=== PATIENT | female | born 1935 | race Caucasian/White ===

== ENCOUNTER 2024-01-16 15:07 | Emergency (ER) | payer OTHER, SELFPAY ==
[2024-01-16 15:21] VITALS: BP 181/72; BMI 22.1
[2024-01-16 16:00] VITALS: BP 182/73
[2024-01-16] MEDS: ADACEL 0.5 ML IM (16:17)
[2024-01-16] MEDS: KEFLEX 500 MG PO (16:17)
[2024-01-16 16:22] VITALS: BP 176/74
--- NOTE | 2024-01-16 16:50 | ED.GENMED ---
History of Present Illness
General
Chief Complaint: Fall
Source: patient and family
Exam Limitations: none
Time Seen by Provider: 01/16/24 15:41
Nursing documentation reviewed up to this point in time: agreed with
History of Present Illness
History of Present Illness:
88-year-old female past medical history of hypertension hyperlipidemia, breast cancer presenting to the emergency department today after a trip and fall at home she hit her forehead as well as her left arm. Did not lose consciousness no neck pain
otherwise feels well at this point. She is unsure when her last tetanus shot was.
Past History
Past History
ED Past Medical History: HTN and Hypercholesterolemia
ED Past Surgical History: Negative Cardiac
Social History
Tobacco: Non-smoker
Alcohol: None
Drug: None
Personal:
Living: with family
Employment: Employed
Review of Systems
Review of Systems
Allergies reviewed?: Yes
All Other Systems: ROS reviewed and negative except as documented in HPI and ROS
Phy Exam
Physical Exam
Physical Exam:
GENERAL: Alert , in no apparent distress
EYE: pupils equal and reactive
NECK: Supple, no significant adenopathy.
ENT: o/p clr, mmm.
CARDIAC: Regular rate and rhythm .
LUNGS: Clear breath sounds bilaterally, no acute respiratory distress, no wheezes/rales/rhonchi
ABDOMEN: Soft, without focal tenderness, no r/g, no cvat
NEUROLOGICAL: Alert and oriented, no focal neuro deficits
SKIN: Large area of superficial skin abrasion to the left arm on the lateral aspect spanning roughly 20 cm in total length and roughly 2 to 3 cm in width. No foreign body seen warm and dry, skin intact.
MUSCULOSKELETAL: No edema, well perfused.
PSYCH: Normal and appropriate interaction.
Course
Orders/Labs/Results
Orders:
Orders
01/16/24 15:47
CT Head W/o Iv Contrast Urgent
Comment:
Reason For Exam: fall hit head
01/16/24 16:04
Cephalexin Monohydrate [Keflex] 500 mg PO NOW STA
01/16/24 16:08
Tetanus/Diphth/Acelpertussis [Adacel] 0.5 ml IM .ONCE ONE
Vital Signs
Initial and Last Documented VS:
Initial Vital Signs
Temp Pulse Resp BP Pulse Ox
98.4 F 70 16 181/72 93
01/16/24 15:21 01/16/24 15:21 01/16/24 15:21 01/16/24 15:21 01/16/24 15:21
Last Documented Vital Signs
Temp Pulse Resp BP Pulse Ox
98.4 F 70 16 181/72 94
01/16/24 15:21 01/16/24 15:21 01/16/24 15:21 01/16/24 15:21 01/16/24 15:21
MDM/Problems Addressed
MDM/Problems Addressed:
88-year-old female presenting to the emergency department today after trip and fall hitting her forehead as well as scraping her left arm. No additional injuries neurologically intact no neck pain good range of motion and strength. Skin tear is
very superficial no specific area that required repair was cleaned thoroughly and covered with active bandage she was started on antibiotics considering large area of skin disruption but otherwise stable for discharge return precautions given.
Normal head CT here.
*Critical Care Note
Total Time (30-74mins, 75-104mins- exclusive of procedures): Not Applicable
ED Attending Note
-
Portions of this chart may have been created with voice recognition software.� Occasional wrong word or��sound alike� substitutions may have occurred due to the inherent limitations of voice recognition software.
Discharge Plan
Departure
Patient Disposition: Home (Routine Discharge)
Date of Disposition: 01/16/24
Time of Disposition: 16:53
Patient with high blood pressure during this ER visit?: No
Condition: Good
Covid-19: Not Applicable
Discharge Problem:
Avulsion of skin, Fall
Instructions: Wound Care (DC), Preventing falls in adults
Prescriptions:
New
cephalexin 500 mg capsule
500 mg PO TID 3 Days Qty: 9 0RF
No Action
levothyroxine 25 MCG tablet
25 mcg PO DAILY
metoprolol succinate 25 MG tablet extended release 24 hr
100 mg PO DAILY
potassium chloride 10 MEQ tablet,ER particles/crystals
20 meq PO DAILY
valsartan 80 MG tablet
320 mg PO DAILY 30 Days Qty: 30 0RF
hydralazine 10 MG tablet
5 mg PO TID Qty: 30 0RF
lovastatin 40 mg Tablet
40 mg PO DAILY
Referrals:
Monty Kowalski MD [Family Provider] -
Activity Restrictions/Additional Instructions:
You came to the emergency department today after a fall. You are found have a large skin avulsion to the left arm please keep the area clean covered and take Keflex 3 times daily for the next 3 days to reduce risk of infection. Additionally had a
head CT without signs of emergent injury. Please rest over the next few days. Return to the emergency department for any worsening, new or concerning symptoms.
Interventions
Interventions:
*Risk Screen - Suicide Last Done: 01/16/24 15:21
*General Assessment Last Done: 01/16/24 15:21
*Neglect/Abuse Screening Last Done: 01/16/24 15:21
ED- Fall Risk Assessment Last Done: 01/16/24 15:21
*ED COVID-19 Vaccine History Last Done: 01/16/24 15:21
ED-Musculoskeletal Assessment Last Done: 01/16/24 15:21
ED- Neurological Assessment Last Done: 01/16/24 15:21
ED-Skin Assessment Last Done: 01/16/24 15:21
Discharge Date and Time
Print Language: TAMAZIGHT
== END 2024-01-16 17:49 | disposition home or self-care (01) ==
LOC: EMR 15:07
PROVIDERS: EMERGENCY PHYSICIAN Emergency Medicine; FAMILY PHYSICIAN Internal Medicine
DX: S41.102A Unspecified open wound of left upper arm, initial encounter (principal); W01.0XXA Fall on same level from slipping, tripping and stumbling without subsequent striking against object, initial encounter; Z23 Encounter for immunization; I10 Essential (primary) hypertension; E78.00 Pure hypercholesterolemia, unspecified
CPT/HCPCS: 99284; 90471; 70450; 90715

== ENCOUNTER 2024-11-30 11:57 | Inpatient (IN) | payer OTHER, SELFPAY ==
[2024-11-29 12:16] VITALS: BP 154/87
[2024-11-29 12:42] LABS: Hematocrit 38.6 % (37.0-47.0); Hemoglobin 13.3 g/dL (12.0-16.0); Mean Corp Hgb Conc. 34.5 g/dL (33.0-37.0); Mean Corpuscular Volume 83.5 fL (81.0-99.0); Nucleated Red Blood Cells % 0 %; Platelet Count 191 10^3/uL (130-400); Red Cell Dist. Width 14.4 % (11.5-14.5)
[2024-11-29 13:01] LABS: ALT (SGPT) 15 U/L (0-35); AST (SGOT) 24 U/L (14-36); Albumin 3.4 g/dl (3.5-5.0); Alkaline Phosphatase 78 U/L (38-126); Blood Urea Nitrogen 14 mg/dl (7-17); Calcium 8.3 mg/dl (8.4-10.2); Carbon Dioxide 25 mmol/L (22-30); Glucose 169 mg/dl (70-99); Total Protein 6.0 g/dl (6.3-8.2); eGFR > 60.00
[2024-11-29 13:10] LABS: Chloride 99 mmol/L (98-107); Sodium 130 mmol/L (135-145)
--- NOTE | 2024-11-29 14:13 | ED.GENMED ---
History of Present Illness
General
Chief Complaint: Bowel Problem
Source: patient and family
Exam Limitations: none
Time Seen by Provider: 11/29/24 13:56
History of Present Illness
History of Present Illness:
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 Patient had her first
Keytruda treatment on 11/12/24. She started to feel unwell about a week later. She reports generalized weakness and fatigue with decreased PO intake. She is also having intermittent diarrhea for the past few days. She had 1 explosive bowel
movement so far today. Daughter tried to call her oncologist but she decided to bring her to the ED for concern for dehydration. Patient denies any fevers, chills, vomiting, dysuria, abdominal pain, chest pain, shortness of breath. She is
scheduled for her next Keytruda in 3 days.
Past History
Past History
ED Past Medical History: HTN and Hypercholesterolemia
ED Past Surgical History: Negative Cardiac
Social History
Tobacco: Non-smoker
Alcohol: None
Drug: None
Personal:
Living: with family
Employment: Employed
Phy Exam
Physical Exam
Physical Exam:
Appears fatigued, non-toxic
General Physical Exam
General Presentation: no apparent distress
General Skin: warm and dry
General Habitus: normal and elderly
General Mental: alert
ENT Exam
ENT Exam: normocephalic
Cardiovascular Exam
Cardiovascular Exam: regular rate/rhythm
Pulmonary Exam
Pulmonary Exam: lungs clear, no respiratory distress, no rales, no crackles, no rhonchi and no wheezing
Gastrointestinal Exam
Gastrointestinal Exam: non tender, soft and non distended
Neurological Exam
Neurological Exam: alert
[place] Coma Scale
Eye Opening: Spontaneous
Verbal Response: Oriented
Motor Response: Obeys Commands
GCS Total Score: 15
Skin Exam
Skin Exam: normal color and warm/dry
Psychiatric Exam
Psychiatric Exam: normal mood/affect
Course
Orders/Labs/Results
Orders:
Orders
11/29/24 Breakfast
Full Liquids
At Your Request: Limited Participation
11/29/24 12:33
Complete Blood Count/With Diff Urgent
Comprehensive Metabolic Panel Urgent
Magnesium Urgent
Comment: MAG ADDED ON BY FLOOR 2:11PM 11-29-24
11/29/24 14:11
Add On- LAB Urgent
Tests Added?: magnesium
0.9% Sodium Chloride 500 ml [Nss] 500 ml IV BOLUS
11/29/24 14:12
Electrocardiogram (*1) Urgent
Reason for Study: Fatigue / Weakness
EKG- Treatment ONCE
11/29/24 14:29
Potassium Chloride [KCl] 40 meq PO NOW STA
11/29/24 17:11
Admit/Transfer Patient As Directed
Co-Sign Provider:
Level of Care: Observation services
Assign to:: Medical/Surgical
Physician / Group: los
Diagnosis: dehydration
PRN Pain Medication Management As Directed
May give lesser potent ordered pain med per pt: Yes
preference::
Protocol:: Medication orders for pain may be administered in a
manner that supports deferring to patient preference
when the pt is:
- Requesting an ordered lesser potent pain medication.
Least to most potent pain medications are defined
as: acetaminophen < NSAID < tramadol < opioids
(morphine, oxycodone, hydromorphone).
- Requesting a lesser dose of the same medication IF
ORDERED.
- Requesting a less intrusive route of administration
if both routes are prescribed by the provider (PO <
IV).
11/29/24 17:12
Code Status As Directed
Resuscitation Status: Do not resuscitate
Reached after discussion with pt or family/Healthcare POA: Yes
DNR Bracelet Application ONCE
11/29/24 17:28
Metoprolol Xl [Toprol Xl] 100 mg PO NOW STA
Valsartan [Diovan] 320 mg PO NOW STA
11/29/24 18:06
0.9% Sodium Chloride 1000 ml [Nss] 1,000 ml IV 80 mls/hr
Acetaminophen [Tylenol] 650 mg PO Q4HPRN PRN
Enoxaparin Sodium [Lovenox] 40 mg SC QPM
11/29/24 18:06
Activity As Directed
Activity Level: As Tolerated
Vital Signs As Directed
Frequency: Per unit guidelines
Pt Eval And Treat Routine
Activity Level: As Tolerated
DX Deep Vein Thrombosis Video Routine
11/29/24 18:15
Pancrelipase [Zenpep Delayed Release Capsule] 1 capsule PO HSPRN PRN
11/29/24 18:30
Pancrelipase [Zenpep Delayed Release Capsule] 2 capsule PO MEALS
11/29/24 19:54
Norovirus by PCR Routine
[facility] Source: Feces/Stool
Specimen Description:
Date Specimen was Collected: 11/29/24
Time Specimen was Collected: 19:40
STOOL [C difficile Antigen & Toxins] Routine
[facility] Source: Feces/Stool
Specimen Description:
Date Specimen was Collected: 11/29/24
Time Specimen was Collected: 19:40
Stool Culture Routine
[facility] Source: Feces/Stool
Specimen Description:
Date Specimen was Collected: 11/29/24
Time Specimen was Collected: 19:40
Stool For WBC Routine
[facility] Source: Feces/Stool
Specimen Description:
Date Specimen was Collected: 11/29/24
Time Specimen was Collected: 19:40
11/29/24 22:00
Atorvastatin [Lipitor] 10 mg PO HS
HydrALAZINE [Apresoline] 50 mg PO TID
11/30/24 06:00
Basic Metabolic Panel IN AM
Complete Blood Count/No Diff IN AM
Levothyroxine [Synthroid] 25 mcg PO DAILY@0600
Occupational Therapy Consult [Ot Eval And Treat] IN AM
11/30/24 08:00
Metoprolol Xl [Toprol Xl] 100 mg PO DAILY
Valsartan [Diovan] 320 mg PO DAILY
Abnormal Lab Results
11/29/24
12:33
WBC 12.2 H 10^3/uL
(4.8-10.8)
MPV 10.8 H fL
(7.4-10.4)
Abs Immat Gran (auto) 0.1 H 10^3/uL
(0-0.05)
Absolute Neuts (auto) 10.5 H 10^3/uL
(1.4-6.5)
Absolute Lymphs (auto) 0.8 L 10^3/uL
(1.2-3.4)
Absolute Monos (auto) 0.8 H 10^3/uL
(0.1-0.6)
Immature Gran % 0.7 H %
(0-0.5)
Neutrophils % 86.0 H %
(42.2-75.2)
Lymphocytes % 6.3 L %
(20.5-51.1)
Sodium 130 L mmol/L
(135-145)
Potassium 3.3 L mmol/L
(3.5-5.1)
Glucose 169 H mg/dl
(70-99)
Calcium 8.3 L mg/dl
(8.4-10.2)
Total Protein 6.0 L g/dl
(6.3-8.2)
Albumin 3.4 L g/dl
(3.5-5.0)
11/29/24 12:33
11/29/24 12:33
Vital Signs
Initial and Last Documented VS:
Initial Vital Signs
Temp Pulse Resp BP Pulse Ox
98.3 F 80 16 154/87 94
11/29/24 12:16 11/29/24 12:16 11/29/24 12:16 11/29/24 12:16 11/29/24 12:16
Last Documented Vital Signs
Temp Pulse Resp BP Pulse Ox
98 F 92 20 142/68 92
11/29/24 18:24 11/29/24 18:24 11/29/24 18:24 11/29/24 18:24 11/29/24 18:24
MDM/Problems Addressed
Differential Diagnosis Includes:
89yoF here with generalized weakness, fatigue, and diarrhea. Recently started on Keytruda for melanoma. VSS. She appears fatigued on exam but is nontoxic. Abdominal exam is benign. Differential diagnosis includes but is not limited to:
Dehydration, viral gastroenteritis, medication side effect, failure to thrive
Initial ED plan: Check CBC, CMP, and EKG. IV fluid bolus. Defer abdominal imaging given benign exam.
*Pulse Oximetry
SaO2: 94
Oxygen Mode of Delivery: Room air
Patient hypoxic: no (94%)
*EKG
Interpreted by ED Provider?: Yes
EKG Intrepretation Date: 11/29/24
Heart Rate: 79
Rate: normal
Rhythm: sinus
[place]: left axis deviation
Interval: normal interval
QRS Pattern: normal QRS
Ischemia: no ischemia
*Critical Care Note
Total Time (30-74mins, 75-104mins- exclusive of procedures): Not Applicable
Update Note
Update Note:
Labs show a sodium of 130 and a potassium of 3.3. Renal function preserved. Patient feels too weak to go home so will admit for further management.
ED Attending Note
-
Portions of this chart may have been created with voice recognition software.� Occasional wrong word or��sound alike� substitutions may have occurred due to the inherent limitations of voice recognition software.
Discharge Plan
Departure
Patient Disposition: Admit
Date of Disposition: 11/29/24
Time of Disposition: 16:46
Presentation/result/management discussed w/ accepting MD/DO: Hospitalist
Discharge Problem:
Generalized weakness, Diarrhea
Interventions
Interventions:
*Risk Screen - Suicide Last Done: 11/29/24 12:20
*General Assessment Last Done: 11/29/24 14:39
*Neglect/Abuse Screening Last Done: 11/29/24 12:20
*ED- Fall Risk Assessment Last Done: 11/29/24 14:39
*Nursing Disposition Last Done: 11/29/24 18:05
ED-Mgicqz-Qfewovtvqs Assessment Last Done: 11/29/24 14:37
Discharge Date and Time
Discharge Date/Time: 11/29/24 18:05
[2024-11-29 14:20] LABS: Potassium 3.3 mmol/L (3.5-5.1)
[2024-11-29] MEDS: NSS 500 IV (14:23)
[2024-11-29 14:36] LABS: Magnesium 1.6 mg/dl (1.6-2.3)
[2024-11-29] MEDS: KCL 40 MEQ PO (15:05)
[2024-11-29 16:00] VITALS: BP 189/78
--- NOTE | 2024-11-29 16:49 | HPS.HSE ---
Family Physician
-
Family Physician: YSABEL De La Cruz
Chief Complaint
-
generalized weakness
diarrha
History of Present Illness
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 Patient had her first
Keytruda treatment on 11/12/24. She started to feel unwell about a week later. She reports generalized weakness and fatigue with decreased PO intake. She is also having intermittent diarrhea since Friday. She had 1 explosive bowel movement so far
today. Patient denies any fevers, chills, vomiting, dysuria, abdominal pain, chest pain, shortness of breath. Patient any headache, dizziness or syncope.
Patient received normal saline, potassium chloride in ER. Admitting for further management
Medical History
Past Medical History
Past Medical History: Reports Other
Additional Past Medical History:
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
Squamous cell carcinoma
Hyperlipidemia
Pancreatic cyst
Breast cancer
Osteoarthritis
Hypothyroidism
Hypertension
Thyroid nodule
Pancreatic adenocarcinoma
Past Surgical History: Reports Other
Additional Past Surgical History:
Report procedure
Mohs surgery
Social History
Tobacco: Non-smoker
Alcohol: None
Drug: None
Living: Alone
Family History
Family History: Not pertinent
Allergies / Home Medications
Allergies reflects when Allergies were last updated in [employer].
Home Medications with original date entered in [employer]
Allergy/Medication List:
Allergies
Allergy/AdvReac Type Severity Reaction Status Date / Time
amlodipine Allergy Unknown Verified 11/15/22 14:38
Home Medications
levothyroxine 25 mcg tablet 25 mcg PO DAILY Thyroid 09/17/21
metoprolol succinate 25 mg tablet,extended release 24 hr 100 mg PO DAILY Blood pressure 09/17/21
potassium chloride 10 mEq tablet,extended release(part/cryst) 20 meq PO DAILY Electrolyte Repletion 09/17/21
valsartan 80 mg tablet 320 mg (4 x 80 mg) PO DAILY 30 days #30 tabs 09/22/21
hydralazine 10 mg tablet 5 mg (1/2 x 10 mg) PO TID #30 tabs 11/01/21
lovastatin 40 mg tablet 40 mg PO DAILY 11/15/22
cephalexin 500 mg capsule 500 mg PO TID 3 days #9 caps 01/16/24
Review of Systems
-
Constitutional: Reports Fatigue
EENT: Reports No Symptoms
Respiratory: Reports No Symptoms
Cardiac: Reports No Symptoms
Abdomen/GI: Reports Diarrhea
: Reports No Symptoms
Musculoskeletal: Reports No Symptoms
Skin: Reports No Symptoms
Neurological: Reports No Symptoms
Endocrine: Reports No Symptoms
Hematologic/Lymphatic: Reports No Symptoms
Psych: Reports No Symptoms
Physical Exam
Vital Signs
Vital Signs
Temp Pulse Resp BP Pulse Ox
98.3 F 88 18 189/78 98
11/29/24 12:16 11/29/24 16:00 11/29/24 16:00 11/29/24 16:00 11/29/24 16:00
Physical Exam
General: Well Developed, Well Nourished and No Apparent Distress
HEENT: NormoCephalic, Moist mucous membranes and Atraumatic
Respiratory: Clear
Cardiac: S1/S2 and Regular Rhythm; No Murmur or Rub
GI: Soft, Non Tender, Non Distended and Normal Bowel Sounds; No Organomegaly
Rectal: Deferred by Provider
Musculoskeletal: No Clubbing, No Cyanosis and No Edema
Skin: No Rash
Neuro: AO x 3 and Nonfocal/grossly intact
Psych: Calm
Laboratory Results
-
11/29/24 12:33
11/29/24 12:33
Laboratory Results
Total Bilirubin 1.1 mg/dl (0.2-1.3) 11/29/24 12:33
AST 24 U/L (14-36) 11/29/24 12:33
ALT 15 U/L (0-35) 11/29/24 12:33
Alkaline Phosphatase 78 U/L (38-126) 11/29/24 12:33
Data Reviewed
-
Lab Data: Labs Reviewed by me
Impression/Plan
-
#weakness/fatigue/diarrhea likely secondary to Keytruda vs viral
- PT/OT consulted
- Stool culture and norovirus
-stool for c diff
-fluids continued for hydration
#hyponatremia hypovolemic
#hypokalemia likely from diarrhea
-na 130, k 3.3
- Normal saline continued
- BMP in a.m.
# Leukocytosis likely reactive
- WBCs 12 point
- Patient is afebrile
- Continue to monitor
# History of pancreatic adenocarcinoma
- Status post Whipple surgery
# Right chest wall melanoma
- Status post resection
- Now on Keytruda first dose was on 11/12 next due in 3 days
# Essential hypertension
# Hyperlipidemia
# DVT prophylaxis
- Lovenox subcu
# CODE STATUS
- patient is DNR
-
--- NOTE | 2024-11-29 17:31 | W.PN.UPDATE ---
Update Note
Progress Note Update
This is an addendum to the H&P written by Liane Fish on 11/29/2024. Patient seen and examined independently with TABLE G[employer] DUAL RATE SUPERVISOR.
89-year-old female past medical history of pancreatic carcinoma status post Whipple, hypertension, hyperlipidemia, melanoma recently started Keytruda on 11/12, hypothyroidism, here with generalized weakness, extreme fatigue and diarrhea. No vomiting
or fever.
Labs show hyponatremia, hypokalemia. Leukocytosis.
Patient with acute diarrhea likely gastroenteritis possibly viral versus related to Keytruda. Check stool studies. Full liquid diet. Advance as tolerated. Continue IV fluids. Replete potassium.
[2024-11-29] MEDS: DIOVAN 320 MG PO (17:50)
[2024-11-29] MEDS: TOPROL XL 100 MG PO (17:51)
[2024-11-29] MEDS: NSS 1000 IV (18:23)
[2024-11-29 18:24] VITALS: BP 142/68
[2024-11-29 18:25] VITALS: BMI 21.7
--- NOTE | 2024-11-29 18:57 | PTCARENOTE ---
Patient received from ED via stretcher; AAOx3; pt ambulated in room with walker; she had 1 incontinence episode of stool; VSS; daughter at bedside; call chandler within reach.
[2024-11-29] MEDS: LOVENOX 40 MG SC (20:15)
[2024-11-29] MEDS: ZENPEP DELAYED RELEASE CAPSULE 2 CAPSULE PO (20:15)
[2024-11-29] MEDS: APRESOLINE 50 MG PO (21:59)
[2024-11-29] MEDS: LIPITOR 10 MG PO (22:00)
[2024-11-29 23:12] VITALS: BP 132/57
[2024-11-30] MEDS: SYNTHROID 25 MCG PO (06:01)
[2024-11-30] MEDS: NSS 1000 IV ×2 (06:01→18:33)
[2024-11-30 07:00] VITALS: BP 131/56
[2024-11-30 08:07] LABS: Hematocrit 32.9 % (37.0-47.0); Hemoglobin 11.3 g/dL (12.0-16.0); Mean Corp Hgb Conc. 34.3 g/dL (33.0-37.0); Mean Corpuscular Volume 83.7 fL (81.0-99.0); Platelet Count 148 10^3/uL (130-400); Red Cell Dist. Width 14.3 % (11.5-14.5)
[2024-11-30] MEDS: TOPROL XL 100 MG PO (08:26)
[2024-11-30] MEDS: ZENPEP DELAYED RELEASE CAPSULE 2 CAPSULE PO ×3 (08:28→17:31)
[2024-11-30] MEDS: APRESOLINE 50 MG PO ×3 (08:28→21:56)
[2024-11-30] MEDS: DIOVAN 320 MG PO (08:29)
[2024-11-30 08:34] LABS: Blood Urea Nitrogen 11 mg/dl (7-17); Calcium 7.5 mg/dl (8.4-10.2); Carbon Dioxide 22 mmol/L (22-30); Chloride 105 mmol/L (98-107); Estimated Creatinine Clearance 47 ml/min; Glucose 137 mg/dl (70-99); Potassium 3.3 mmol/L (3.5-5.1); Sodium 132 mmol/L (135-145); eGFR > 60.00
[2024-11-30] MEDS: KCL 40 MEQ PO (09:57)
--- NOTE | 2024-11-30 10:48 | W.PN.HOSP.TC ---
Today's Communication/Plan
-
Potassium Replete
Await further stool studies
Continue IV fluids
PT eval
Assessment / Plan
Assessment / Plan
#Diarrhea likely secondary to Keytruda vs viral
#Fatigue and weakness likely secondary dehydration secondary to above
C. difficile negative. Awaiting norovirus. Awaiting further stool studies
If patient with severe abdominal pain or cramping then check CT abdomen pelvis
Advance diet and monitor for tolerance. If it nausea vomiting can de-escalate diet
IV fluids for additional 24 hours
#hyponatremia hypovolemic
#hypokalemia likely from diarrhea
Replete potassium
Continue IV fluid
Sodium is improving
# Leukocytosis likely reactive
Resolved
Patient is afebrile
Continue to monitor
# History of pancreatic adenocarcinoma
Status post Whipple surgery
# Right chest wall melanoma
Status post resection
Now on Keytruda first dose was on 11/12 next due in 3 days
# Essential hypertension
Continue with hydralazine and Diovan and metoprolol with hold parameters
# Hyperlipidemia
Continue with statin
# DVT prophylaxis- Lovenox subcu
# CODE STATUS
- patient is DNR
PT eval
Anticipated Discharge: > 48 hours
Subjective/Interval History
-
Date of Service: November 30, 2024
Remains with diarrhea
Denies any nausea or vomiting
Objective Data
-
Labs:
Laboratory Results
11/30/24
07:09
WBC 10.0
Hgb 11.3 L
Hct 32.9 L
Plt Count 148 D
Sodium 132 L
Potassium 3.3 L
Chloride 105
Carbon Dioxide 22
BUN 11
Creatinine 0.4 L
Glucose 137 H
Calcium 7.5 L
Vital Signs:
Vital Signs
Temp Pulse Resp BP Pulse Ox
98.2 F 73 16 131/56 91
11/30/24 07:00 11/30/24 08:26 11/30/24 07:00 11/30/24 08:26 11/30/24 10:06
I&O
11/29/24 11/30/24 12/01/24
06:59 06:59 06:59
Intake Total 960 / 960
Balance 960 / 960
Physical Exam
-
General: No Apparent Distress, Comfortable and Conversant; Negative Slurred Speech
HEENT: Normocephalic, Atraumatic and Moist Mucous Membranes
Respiratory: Non Labored Respirations
Cardiac: Negative Murmur, Rub or Gallop
GI: Soft, Nontender, Nondistended and Normal Bowel Sounds; Negative Organomegaly
Rectal: Deferred by Provider
Musculoskeletal: No Clubbing, No Cyanosis and No Edema
Skin: Negative Rash
Neuro: Awake, Alert, Oriented, No Motor Deficits and Nonfocal/Grossly Intact; Negative Slurred Speech or Facial Droop
Psych: Calm
Data Reviewed
-
Total Time Spent with Patient (in minutes): 55
[2024-11-30] MEDS: IMODIUM 4 MG PO (12:01)
[2024-11-30 12:06] VITALS: BP 130/59; PULSE 67; O2SAT 93
--- NOTE | 2024-11-30 14:00 | CHAP ---
Msgr. Jonas Gutierrez of [facility] in [place] gave Amber the Sacrament of the Sick, Holy Communion and an Apostolic Pardon. Exact time uncertain.
[2024-11-30 15:00] VITALS: BP 146/66
[2024-11-30] MEDS: LOVENOX 40 MG SC (17:31)
[2024-11-30] MEDS: LIPITOR 10 MG PO (21:57)
[2024-11-30 23:20] VITALS: BP 146/65
[2024-12-01] MEDS: SYNTHROID 25 MCG PO (06:11)
[2024-12-01] MEDS: NSS 1000 IV (06:28)
[2024-12-01 07:20] VITALS: BP 129/49
[2024-12-01] MEDS: APRESOLINE 50 MG PO ×3 (08:21→21:47)
[2024-12-01] MEDS: DIOVAN 320 MG PO (08:22)
[2024-12-01] MEDS: ZENPEP DELAYED RELEASE CAPSULE 2 CAPSULE PO ×3 (08:22→17:23)
[2024-12-01] MEDS: TOPROL XL 100 MG PO (08:22)
[2024-12-01 09:29] LABS: Hematocrit 35.2 % (37.0-47.0); Hemoglobin 11.7 g/dL (12.0-16.0); Mean Corp Hgb Conc. 33.2 g/dL (33.0-37.0); Mean Corpuscular Volume 85.2 fL (81.0-99.0); Nucleated Red Blood Cells % 0 %; Platelet Count 198 10^3/uL (130-400); Red Cell Dist. Width 14.6 % (11.5-14.5)
[2024-12-01 09:54] LABS: Blood Urea Nitrogen 10 mg/dl (7-17); Calcium 7.8 mg/dl (8.4-10.2); Carbon Dioxide 20 mmol/L (22-30); Chloride 106 mmol/L (98-107); Estimated Creatinine Clearance 47 ml/min; Glucose 123 mg/dl (70-99); Potassium 3.9 mmol/L (3.5-5.1); Sodium 130 mmol/L (135-145); eGFR > 60.00
--- NOTE | 2024-12-01 10:15 | W.PN.HOSP.TC ---
Today's Communication/Plan
-
Monitor for diet tolerance
DC fluids
Monitor stool output
Assessment / Plan
Assessment / Plan
#Diarrhea likely secondary to Keytruda vs viral
#Fatigue and weakness likely secondary dehydration secondary to above
C. difficile negative. Norovirus negative. No WBC seen in the stool.
Denies any abdominal pain or cramping.
DC fluids. Monitor for diet tolerance.
# Chronic hyponatremia
#hypokalemia likely from diarrhea
Potassium stabilized.
# Leukocytosis likely reactive
Resolved
Patient is afebrile
Continue to monitor
# History of pancreatic adenocarcinoma
Status post Whipple surgery
# Right chest wall melanoma
Status post resection
Now on Keytruda first dose was on 11/12 next due in 3 days
# Essential hypertension
Continue with hydralazine and Diovan and metoprolol with hold parameters
# Hyperlipidemia
Continue with statin
# DVT prophylaxis- Lovenox subcu
# CODE STATUS
- patient is DNR
PT eval Home on discharge
Anticipated Discharge: Within 24 hours
Subjective/Interval History
-
Date of Service: December 01, 2024
Denies any abdominal pain, cramping, nausea, vomiting
States no bowel movement since last night
Objective Data
-
Labs:
Laboratory Results
12/01/24
09:09
WBC 9.9
Hgb 11.7 L
Hct 35.2 L
Plt Count 198 D
Sodium 130 L
Potassium 3.9
Chloride 106
Carbon Dioxide 20 L
BUN 10
Creatinine 0.4 L
Glucose 123 H
Calcium 7.8 L
Vital Signs:
Vital Signs
Temp Pulse Resp BP Pulse Ox
98.6 F 76 16 129/49 94
07/02/25 07:20 12/01/24 08:21 12/01/24 07:20 12/01/24 08:21 12/01/24 07:20
I&O
11/30/24 12/01/24 12/02/24
06:59 06:59 06:59
Intake Total 960 / 960 3190 / 3190
Balance 960 / 960 3190 / 3190
Physical Exam
-
General: No Apparent Distress, Comfortable and Conversant; Negative Slurred Speech
HEENT: Normocephalic, Atraumatic and Moist Mucous Membranes
Respiratory: Non Labored Respirations
Cardiac: Negative Murmur, Rub or Gallop
GI: Soft, Nontender, Nondistended and Normal Bowel Sounds; Negative Organomegaly
Rectal: Deferred by Provider
Musculoskeletal: No Clubbing, No Cyanosis and No Edema
Skin: Negative Rash
Neuro: Awake, Alert, Oriented, No Motor Deficits and Nonfocal/Grossly Intact; Negative Slurred Speech or Facial Droop
Psych: Calm
--- NOTE | 2024-12-01 13:03 | CM ---
Initial assessment completed with patient who lives with her in a 2 story home with B/B on 2nd and 1/2 bath on 1st, 1 step to enter. 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
. Also has 3 daughters and 1 son that are very supportive and helpful. Patient does not use any DME but there is a hospital bed, RW and SPC in the home. Patient does not receive any in-home services. Does have a HC-POA. No
service. [employer] is Adam Garcia with [facility]. Pharmacy is [facility] in [place]. Discharge POC: [facility] for RN, PT/OT. Referral forwarded.
--- NOTE | 2024-12-01 14:13 | PN.CDI ---
CDI
- -
CDI:
Physician Documentation Request
Admit Date: 11/30/24 11:57
Dear Doctor Stephanie,
Please review the following and provide your response in the progress notes.
Clinical Indicators:
Pt admitted with Diarrhea likely from Keytruda vs viral
Documented per Nursing [facility] note 11/29, ' Present on admission Buttock pressure injury stage 1 ..silicone border foam..'
Physician documentation of the type and location of wounds is required for compliant documentation. Based on the above clinical findings and your assessment, please provide the following in your progress note:
1. Location of the ulcer/wound, including laterality.
2. Type (etiology) of ulcer/wound:
- Pressure (decubitus) ulcer
- Non-pressure ulcer
- Other ( please specify)
Use of terms such as suspected, likely, concern for, or probable (associated with a specific diagnosis that is being evaluated, monitored, or treated as if it exists) are acceptable and can be coded in the inpatient setting, when documented at the
time of discharge.
Thank you,
Malorie Coto RN
CDI Specialist
Brant Text
Please use your independent medical judgment in providing your response.
*Source: National Pressure Ulcer Advisory Panel (NPUAP)
[2024-12-01 15:46] VITALS: BP 142/59
[2024-12-01 16:02] VITALS: BP 142/59; PULSE 65; O2SAT 93
[2024-12-01] MEDS: LOVENOX 40 MG SC (17:23)
[2024-12-01 21:45] VITALS: BP 131/57
[2024-12-01] MEDS: LIPITOR 10 MG PO (21:47)
--- NOTE | 2024-12-02 03:35 | PTCARENOTE ---
Patient c/o 'feeling like she cannot urinate.' Patient bladder scanned, at 0330, after sitting on the commode and was found to have 200 mls of urine in her bladder. Lima-pad was saturated; removed and changed. Patient resting comfortably at this
time; plan of care ongoing.
[2024-12-02] MEDS: SYNTHROID 25 MCG PO (05:42)
[2024-12-02 07:00] VITALS: BP 126/59
[2024-12-02] MEDS: DIOVAN 320 MG PO (07:58)
[2024-12-02] MEDS: APRESOLINE 50 MG PO ×3 (07:58→21:16)
[2024-12-02] MEDS: TOPROL XL 100 MG PO (07:59)
[2024-12-02] MEDS: ZENPEP DELAYED RELEASE CAPSULE 2 CAPSULE PO ×3 (08:07→18:01)
[2024-12-02] MEDS: LR 1000 IV ×2 (11:24→23:06)
[2024-12-02] MEDS: COLACE 100 MG PO ×2 (11:28→19:49)
--- NOTE | 2024-12-02 13:13 | W.PN.HOSP.TC ---
Addendum entered and electronically signed by Heron Brown MD 12/02/24 18:15:
CT scan finding showing emphysematous cystitis. WBC normal. Urology consulted Dr. Victor. Recs for German catheter placement. Will obtain UA sample and start broad spectrum antibiotics.
Original Note:
Today's Communication/Plan
-
Check CT abdomen pelvis
Start patient on IV fluids
Check labs
If with nausea vomiting de-escalate diet
Assessment / Plan
Assessment / Plan
#Diarrhea likely secondary to Keytruda vs viral
#Fatigue and weakness likely secondary dehydration secondary to above
# Now with ileus
C. difficile negative. Norovirus negative. No WBC seen in the stool.
Denies any abdominal pain or cramping. Denies any bowel movement greater than 24 hours
Abdominal x-ray with ileus
Check CT abdomen pelvis to assess further
Start gentle IV fluids
If develops nausea or vomiting then downgrade and diet
#Chronic hyponatremia
#hypokalemia likely from diarrhea
Potassium stabilized.
#Leukocytosis likely reactive
Resolved
Patient is afebrile
Continue to monitor
# History of pancreatic adenocarcinoma
Status post Whipple surgery
# Right chest wall melanoma
Status post resection
Now on Keytruda first dose was on 11/12 next due in 3 days
# Essential hypertension
Continue with hydralazine and Diovan and metoprolol with hold parameters
# Hyperlipidemia
Continue with statin
# DVT prophylaxis- Lovenox subcu
# CODE STATUS- patient is DNR
PT eval Home on discharge
Anticipated Discharge: > 48 hours
Subjective/Interval History
-
Date of Service: December 02, 2024
Passed stone flatulence flatulence
No bowel movements
Denies any nausea vomiting
Patient states Creon usually gives her constipation
Objective Data
-
Vital Signs:
Vital Signs
Temp Pulse Resp BP Pulse Ox
98 F 79 16 126/59 91
12/02/24 07:00 12/02/24 07:59 12/02/24 07:00 12/02/24 07:59 12/02/24 07:00
I&O
12/01/24 12/02/24 12/03/24
06:59 06:59 06:59
Intake Total 3190 / 3190 1088 / 1088
Balance 3190 / 3190 1088 / 1088
Physical Exam
-
General: No Apparent Distress, Comfortable and Conversant; Negative Slurred Speech
HEENT: Normocephalic, Atraumatic and Moist Mucous Membranes
Respiratory: Non Labored Respirations
Cardiac: Negative Murmur, Rub or Gallop
GI: Soft, Nontender, Normal Bowel Sounds and Distended (Mild); Negative Organomegaly
Rectal: Deferred by Provider
Musculoskeletal: No Clubbing, No Cyanosis and No Edema
Skin: Negative Rash
Neuro: Awake, Alert, Oriented, No Motor Deficits and Nonfocal/Grossly Intact; Negative Slurred Speech or Facial Droop
Psych: Calm
Data Reviewed
-
Total Time Spent with Patient (in minutes): 55
[2024-12-02 14:15] VITALS: BP 125/68
[2024-12-02] MEDS: OMNIPAQUE 50 ML PO (14:30)
--- NOTE | 2024-12-02 14:31 | CM ---
CM following re: discharge planning.
Reviewed pt's chart, met with pot.
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 Patient is primary language path for ill .
PT and OT evaluations noted - home PT/OT recommended and pt requested [facility].
Pt is referred to [facility] and accepted for services.
Please fax discharge instructions to [facility] at [phone]
D/C plan: home with [facility] and family support.
CM will follow with discharge plan updates as needed.
[2024-12-02 14:40] LABS: Hematocrit 37.3 % (37.0-47.0); Hemoglobin 12.6 g/dL (12.0-16.0); Mean Corp Hgb Conc. 33.8 g/dL (33.0-37.0); Mean Corpuscular Volume 84.8 fL (81.0-99.0); Nucleated Red Blood Cells % 0 %; Platelet Count 226 10^3/uL (130-400); Red Cell Dist. Width 14.8 % (11.5-14.5)
[2024-12-02 15:00] VITALS: BP 137/62
[2024-12-02 15:24] LABS: Blood Urea Nitrogen 12 mg/dl (7-17); Calcium 7.9 mg/dl (8.4-10.2); Carbon Dioxide 21 mmol/L (22-30); Chloride 104 mmol/L (98-107); Estimated Creatinine Clearance 47 ml/min; Glucose 142 mg/dl (70-99); Potassium 3.8 mmol/L (3.5-5.1); Sodium 129 mmol/L (135-145); eGFR > 60.00
[2024-12-02] MEDS: LOVENOX 40 MG SC (17:36)
[2024-12-02] MEDS: ZOSYN 50 IV ×2 (18:57→23:04)
[2024-12-02 19:08] LABS: Urine Character Clear (Clear)
[2024-12-02 19:21] LABS: Urine Red Blood Cell 0-2 /HPF (0-2); Urine Squamous Cell >30 /LPF (Few); Urine White Cell >100 /HPF (0-5)
[2024-12-02 21:15] VITALS: BP 129/57
[2024-12-02] MEDS: LIPITOR 10 MG PO (21:16)
[2024-12-02 23:15] VITALS: BP 126/54
[2024-12-03] MEDS: ZOSYN 50 IV ×4 (06:04→23:29)
[2024-12-03] MEDS: SYNTHROID 25 MCG PO (06:04)
[2024-12-03 07:03] VITALS: BP 138/59
[2024-12-03 07:35] LABS: Hematocrit 33.7 % (37.0-47.0); Hemoglobin 11.7 g/dL (12.0-16.0); Mean Corp Hgb Conc. 34.7 g/dL (33.0-37.0); Mean Corpuscular Volume 82.8 fL (81.0-99.0); Nucleated Red Blood Cells % 0 %; Platelet Count 178 10^3/uL (130-400); Red Cell Dist. Width 14.5 % (11.5-14.5)
[2024-12-03] MEDS: TOPROL XL 100 MG PO (07:36)
[2024-12-03] MEDS: APRESOLINE 50 MG PO ×3 (07:36→22:05)
[2024-12-03] MEDS: ZENPEP DELAYED RELEASE CAPSULE 2 CAPSULE PO ×3 (07:36→17:26)
[2024-12-03] MEDS: COLACE PO ×2 (07:36→08:08)
[2024-12-03] MEDS: LR 1000 IV (07:36)
[2024-12-03 08:01] LABS: Blood Urea Nitrogen 11 mg/dl (7-17); Calcium 7.4 mg/dl (8.4-10.2); Carbon Dioxide 19 mmol/L (22-30); Chloride 103 mmol/L (98-107); Estimated Creatinine Clearance 47 ml/min; Glucose 100 mg/dl (70-99); Potassium 3.5 mmol/L (3.5-5.1); Sodium 128 mmol/L (135-145); eGFR > 60.00
--- NOTE | 2024-12-03 09:35 | W.PN.URO.CBU ---
Today's Communication / Plan
-
plan permhospitalist
Assessment / Plan
-
emphysematous cystitis rsponding clinically yto broad spectrum abs. Await cxs will remove in due her naty Gutierrez for now
Diagnosis
-
Date of Service: December 03, 2024
-
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
Post Op Day:
Subjective
-
feeling better
Objective
-
Vital Signs
Temp Pulse Resp BP Pulse Ox
98.3 F 76 20 138/59 91
12/03/24 07:03 12/03/24 07:36 12/03/24 07:03 12/03/24 07:36 12/03/24 07:03
Intake and Output
12/02/24 12/03/24 12/04/24
06:59 06:59 06:59
Intake Total 1088 / 1088 2854 / 2854
Output Total 270 / 270
Balance 1088 / 1088 2584 / 2584
Intake:
Oral fluids 1088 / 1088 1290 / 1290
IV fluids (Total) 1514 / 1514
IV piggybacks 50 / 50
Output:
Urine, German 270 / 270
Other:
Number of approximated SMALL 1
amounts of urine
Number of approximated MODERATE 1 1
amounts of urine
How many times incontinent 2
SATURATED amount urine
Number of unmeasured liquid
stools
Rectum 2
Laboratory Results
12/03/24 06:31
12/03/24 06:31
Review of Systems
-
Constitutional: Fatigue, Night Sweats and Chills
: Urgency
Physical Exam
-
General - well developed, well nourished, no acute distress
Chest - clear bilaterally
Abdomen - soft, non-tender, positive bowel sounds, no CVAT, no incisional pain or distention
Genitalia - normal
Rectal - normal
Skin - warm & dry with no rash
Neuro - AOx3, no motor deficits
Extremities - no clubbing, no cyanosis, no edema
Incision - clean, dry
Dressing - clean, dry, intact
Care Review
Data Reviewed
Discussed with: Nursing
CT Scan: Image Pers Reviewed
--- NOTE | 2024-12-03 10:37 | W.PN.HOSP.TC ---
Today's Communication/Plan
-
dc IVF
IV abx
monitor UOP
Assessment / Plan
Assessment / Plan
#Emphysematous cystitis
CAT scan finding noted.
Urinalysis noted. Blood cultures in lab.
German catheter
Broad-spectrum IV antibiotics
Urology following
#Diarrhea likely secondary to Keytruda vs viral
#Fatigue and weakness likely secondary dehydration secondary to above
# Now with ileus
C. difficile negative. Norovirus negative. No WBC seen in the stool.
Denies any abdominal pain or cramping.
Abdominal x-ray with ileus
CAT scan abdomen pelvis with enteritis.
Status post 24 hours of additional IV fluids. Observe off IV fluids for now
If develops nausea or vomiting then downgrade and diet
#Chronic hyponatremia
#hypokalemia likely from diarrhea
Potassium stabilized.
Sodium mildly downtrend noted. Will observe for now. DC fluids.
#Leukocytosis
Resolved
Patient is afebrile
Continue to monitor
# History of pancreatic adenocarcinoma
Status post Whipple surgery
# Right chest wall melanoma
Status post resection
Now on Keytruda first dose was on 11/12 next due in 3 days
# Essential hypertension
Continue with hydralazine and Diovan and metoprolol with hold parameters
# Hyperlipidemia
Continue with statin
# DVT prophylaxis- Lovenox subcu
# CODE STATUS- patient is DNR
PT eval Home on discharge
Updated daughter Karen SARGENT over the phone in details
Anticipated Discharge: > 48 hours
Subjective/Interval History
-
Date of Service: December 03, 2024
States of loose bowel movements. No nausea no vomiting. No abdominal pain.
Objective Data
-
Labs:
Laboratory Results
07/04/25
06:31
WBC 7.3
Hgb 11.7 L
Hct 33.7 L
Plt Count 178 D
Sodium 128 L
Potassium 3.5
Chloride 103
Carbon Dioxide 19 L
BUN 11
Creatinine 0.5 L
Glucose 100 H
Calcium 7.4 L
Vital Signs:
Vital Signs
Temp Pulse Resp BP Pulse Ox
98.3 F 76 20 138/59 91
12/03/24 07:03 12/03/24 07:36 12/03/24 07:03 12/03/24 07:36 12/03/24 07:03
I&O
12/02/24 12/03/24 12/04/24
06:59 06:59 06:59
Intake Total 1088 / 1088 2854 / 2854
Output Total 270 / 270
Balance 1088 / 1088 2584 / 2584
Physical Exam
-
General: No Apparent Distress and Comfortable; Negative Slurred Speech
HEENT: Normocephalic, Atraumatic and Moist Mucous Membranes
Respiratory: Non Labored Respirations
Cardiac: Negative Murmur, Rub or Gallop
GI: Soft, Nontender, Normal Bowel Sounds and Distended (Mild); Negative Organomegaly
Rectal: Deferred by Provider
Musculoskeletal: No Clubbing, No Cyanosis and No Edema
Skin: Negative Rash
Neuro: Awake, Alert, Oriented, No Motor Deficits and Nonfocal/Grossly Intact; Negative Slurred Speech or Facial Droop
Psych: Calm
Data Reviewed
-
Total Time Spent with Patient (in minutes): 55
[2024-12-03] MEDS: MAALOX 30 ML PO (13:30)
[2024-12-03] MEDS: PROTONIX 40 MG PO (14:37)
[2024-12-03 15:00] VITALS: BP 119/56
[2024-12-03 15:55] VITALS: BP 130/56
[2024-12-03] MEDS: LOVENOX 40 MG SC (17:26)
[2024-12-03] MEDS: LIPITOR 10 MG PO (22:05)
[2024-12-03 23:22] VITALS: BP 130/55
[2024-12-04] MEDS: ZOSYN 50 IV ×4 (05:46→23:49)
[2024-12-04] MEDS: SYNTHROID 25 MCG PO (06:28)
[2024-12-04 07:06] LABS: Hematocrit 35.2 % (37.0-47.0); Hemoglobin 12.1 g/dL (12.0-16.0); Mean Corp Hgb Conc. 34.4 g/dL (33.0-37.0); Mean Corpuscular Volume 82.2 fL (81.0-99.0); Nucleated Red Blood Cells % 0 %; Platelet Count 167 10^3/uL (130-400); Red Cell Dist. Width 14.5 % (11.5-14.5)
[2024-12-04 07:21] LABS: Blood Urea Nitrogen 10 mg/dl (7-17); Calcium 7.6 mg/dl (8.4-10.2); Carbon Dioxide 23 mmol/L (22-30); Chloride 104 mmol/L (98-107); Estimated Creatinine Clearance 47 ml/min; Glucose 142 mg/dl (70-99); Potassium 3.3 mmol/L (3.5-5.1); Sodium 129 mmol/L (135-145); eGFR > 60.00
[2024-12-04 07:35] VITALS: BP 130/66
[2024-12-04] MEDS: PROTONIX 40 MG PO (08:31)
[2024-12-04] MEDS: TOPROL XL 100 MG PO (08:31)
[2024-12-04] MEDS: APRESOLINE 50 MG PO ×3 (08:32→21:57)
[2024-12-04] MEDS: ZENPEP DELAYED RELEASE CAPSULE 2 CAPSULE PO ×3 (08:33→18:33)
[2024-12-04] MEDS: KCL 40 MEQ PO (08:33)
--- NOTE | 2024-12-04 08:35 | W.PN.URO.CBU ---
Today's Communication / Plan
-
remove alfonso please plan otherwise up to hospitalist
Assessment / Plan
-
emphysematous cystitis rsponding clinically yto broad spectrum abs. Await cxs will remove alfonso today
Diagnosis
-
Date of Service: December 04, 2024
-
Patient Diagnosis:
Post Op Day:
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
Post Op Day:
Subjective
-
feels well
Objective
-
Vital Signs
Temp Pulse Resp BP Pulse Ox
97.9 F 63 18 130/55 94
12/03/24 23:22 12/03/24 23:22 12/03/24 23:22 12/03/24 23:22 12/03/24 23:22
Intake and Output
12/03/24 12/04/24 12/05/24
06:59 06:59 06:59
Intake Total 2854 / 2854 1350 / 1350
Output Total 270 / 270 525 / 525
Balance 2584 / 2584 825 / 825
Intake:
Oral fluids 1290 / 1290 650 / 650
IV fluids (Total) 1514 / 1514 600 / 600
IV piggybacks 50 / 50 100 / 100
Output:
Urine, Alfonso 270 / 270 525 / 525
Other:
Number of approximated SMALL 1
amounts of urine
Number of approximated MODERATE 1
amounts of urine
Number of unmeasured liquid
stools
Rectum 2 1
Laboratory Results
12/04/24 06:31
12/04/24 06:31
Review of Systems
-
: Dysuria
Physical Exam
-
General - well developed, well nourished, no acute distress
Chest - clear bilaterally
Abdomen - soft, non-tender, positive bowel sounds, no CVAT, no incisional pain or distention
Genitalia - normal
Rectal - normal
Skin - warm & dry with no rash
Neuro - AOx3, no motor deficits
Extremities - no clubbing, no cyanosis, no edema
Incision - clean, dry
Dressing - clean, dry, intact
Care Review
Data Reviewed
Discussed with: Nursing
--- NOTE | 2024-12-04 10:00 | PTCARENOTE ---
Patient's German Discontinued as ordered. No s/s of distress noted at this time. plan of care ongoing. call chandler within reach.
--- NOTE | 2024-12-04 11:01 | W.PN.HOSP.TC ---
Addendum entered and electronically signed by Heron Brown MD 12/04/24 15:58:
Buttock pressure injury stage 1-poa
Original Note:
Today's Communication/Plan
-
Replete potassium
Follow-up on the urine culture
Continue with Zosyn
DC German per urology
trial of voiding
Assessment / Plan
Assessment / Plan
General: No Apparent Distress and Comfortable; Negative Slurred Speech
HEENT: Normocephalic, Atraumatic and Moist Mucous Membranes
Respiratory: Non Labored Respirations
Cardiac: Negative Murmur, Rub or Gallop
GI: Soft, Nontender, Normal Bowel Sounds and Distended (Mild); Negative Organomegaly
Rectal: Deferred by Provider
Musculoskeletal: No Clubbing, No Cyanosis and No Edema
Skin: Negative Rash
Neuro: Awake, Alert, Oriented, No Motor Deficits and Nonfocal/Grossly Intact; Negative Slurred Speech or Facial Droop
Psych: Calm
:German
#Emphysematous cystitis
CAT scan finding noted.
Urinalysis noted. Blood cultures in lab and remains negative
Preliminary urine culture with gram-negative bacilli
German catheter-per urology discontinue. Trial of voiding
Broad-spectrum IV antibiotics continued
Urology following
#Diarrhea likely secondary to Keytruda vs viral
#Fatigue and weakness likely secondary dehydration secondary to above
# Now with ileus
C. difficile negative. Norovirus negative. No WBC seen in the stool.
Denies any abdominal pain or cramping.
Abdominal x-ray with ileus
CAT scan abdomen pelvis with enteritis.
Status post 24 hours of additional IV fluids. Observe off IV fluids for now
If develops nausea or vomiting then downgrade and diet
#Chronic hyponatremia
#hypokalemia likely from diarrhea
Potassium stabilized.
Sodium mildly downtrend noted. Will observe for now. DC fluids.
#Leukocytosis
Resolved
Patient is afebrile
Continue to monitor
# History of pancreatic adenocarcinoma
Status post Whipple surgery
# Right chest wall melanoma
Status post resection
Now on Keytruda first dose was on 11/12 next due in 3 days
# Essential hypertension
Continue with hydralazine and Diovan and metoprolol with hold parameters
# Hyperlipidemia
Continue with statin
#Hypokalemia
Replete and monitor
# DVT prophylaxis- Lovenox subcu
# CODE STATUS- patient is DNR
PT eval Home on discharge
Anticipated Discharge: > 48 hours
Subjective/Interval History
-
Date of Service: December 04, 2024
States feeling better
Denies any abdominal pain, cramping or nausea or vomiting
Objective Data
-
Labs:
Laboratory Results
12/04/24
06:31
WBC 6.2
Hgb 12.1
Hct 35.2 L
Plt Count 167
Sodium 129 L
Potassium 3.3 L
Chloride 104
Carbon Dioxide 23
BUN 10
Creatinine 0.5 L
Glucose 142 H
Calcium 7.6 L
Vital Signs:
Vital Signs
Temp Pulse Resp BP Pulse Ox
98.2 F 71 18 130/58 91
12/04/24 07:35 12/04/24 08:32 12/03/24 23:22 12/04/24 08:32 12/04/24 07:35
I&O
12/03/24 12/04/24 12/05/24
06:59 06:59 06:59
Intake Total 2854 / 2854 1350 / 1350
Output Total 270 / 270 525 / 525
Balance 2584 / 2584 825 / 825
[2024-12-04] MEDS: MAALOX 30 ML PO (14:03)
[2024-12-04 15:06] VITALS: BP 127/63
[2024-12-04] MEDS: LOVENOX 40 MG SC (17:46)
--- NOTE | 2024-12-04 18:30 | PTCARENOTE ---
Patient's family requested Pt to be Creon, instead of Zenpep, as pt takes at home. made aware. [facility] Creon. Family brought her Creon from home and was send to Pharmacy.
--- NOTE | 2024-12-04 19:20 | PTCARENOTE ---
Patient German discontinued at 10 am today as ordered. 400 output noted. patient voided small amount of urine. 1st Bladder scan 10 ml. pt denies abdomen pain at this time. 2nd bladder scan 76ml. encourage pt to drink fluids. plan of care ongoing.
call chandler within reach.
[2024-12-04] MEDS: LIPITOR 10 MG PO (21:57)
[2024-12-04 23:14] VITALS: BP 120/53
[2024-12-05 04:35] LABS: Hematocrit 34.7 % (37.0-47.0); Hemoglobin 11.8 g/dL (12.0-16.0); Mean Corp Hgb Conc. 34.0 g/dL (33.0-37.0); Mean Corpuscular Volume 83.0 fL (81.0-99.0); Nucleated Red Blood Cells % 0 %; Platelet Count 174 10^3/uL (130-400); Red Cell Dist. Width 14.8 % (11.5-14.5)
[2024-12-05 04:56] LABS: Blood Urea Nitrogen 9 mg/dl (7-17); Calcium 7.8 mg/dl (8.4-10.2); Carbon Dioxide 23 mmol/L (22-30); Chloride 105 mmol/L (98-107); Estimated Creatinine Clearance 47 ml/min; Glucose 135 mg/dl (70-99); Potassium 3.6 mmol/L (3.5-5.1); Sodium 129 mmol/L (135-145); eGFR > 60.00
[2024-12-05] MEDS: ZOSYN 50 IV (06:10)
[2024-12-05] MEDS: SYNTHROID 25 MCG PO (06:12)
[2024-12-05 07:17] VITALS: BP 135/65
[2024-12-05] MEDS: NON-FORMULARY ITEM 1 UNIT PO (09:04)
[2024-12-05] MEDS: APRESOLINE 50 MG PO (09:04)
[2024-12-05] MEDS: PROTONIX 40 MG PO (09:04)
[2024-12-05] MEDS: TOPROL XL 100 MG PO (09:04)
--- NOTE | 2024-12-05 11:02 | W.PN.HOSP.TC ---
Addendum entered and electronically signed by Heron Brown MD 12/05/24 11:12:
Updated daughter Karen over the phone in detail. Daughter agreed with discharge planning.
Original Note:
Today's Communication/Plan
-
po abx
dc home
Assessment / Plan
Assessment / Plan
General: No Apparent Distress and Comfortable; Negative Slurred Speech
HEENT: Normocephalic, Atraumatic and Moist Mucous Membranes
Respiratory: Non Labored Respirations
Cardiac: Negative Murmur, Rub or Gallop
GI: Soft, Nontender, Normal Bowel Sounds and Distended (Mild); Negative Organomegaly
Rectal: Deferred by Provider
Musculoskeletal: No Clubbing, No Cyanosis and No Edema
Skin: Negative Rash
Neuro: Awake, Alert, Oriented, No Motor Deficits and Nonfocal/Grossly Intact; Negative Slurred Speech or Facial Droop
Psych: Calm
:Gemran
#Emphysematous cystitis secondary to Klebsiella urinary tract infection
CAT scan finding noted.
Urinalysis noted. Blood cultures in lab and remains negative. Remains afebrile. White count normal.
Urine culture with Klebsiella. Morton sensitivity noted. Switch to p.o. Keflex.
German catheter-per urology discontinue on 12/04/2024. Voiding without any difficulty.
Transition Zosyn to p.o. antibiotics on discharge
Urology following
#Diarrhea likely secondary to Keytruda vs viral
#Fatigue and weakness likely secondary dehydration secondary to above
# Now with ileus
C. difficile negative. Norovirus negative. No WBC seen in the stool.
Denies any abdominal pain or cramping.
Abdominal x-ray with ileus
CAT scan abdomen pelvis with enteritis.
Status post 24 hours of additional IV fluids. Observe off IV fluids for now
If develops nausea or vomiting then downgrade and diet
#Chronic hyponatremia
#hypokalemia likely from diarrhea
Potassium stabilized.
Sodium at baseline.
#Leukocytosis
Resolved
Patient is afebrile
Continue to monitor
# History of pancreatic adenocarcinoma
Status post Whipple surgery
# Right chest wall melanoma
Status post resection
Now on Keytruda first dose was on 11/12 next due in 3 days
# Essential hypertension
Continue with hydralazine and Diovan and metoprolol with hold parameters
# Hyperlipidemia
Continue with statin
#Hypokalemia
Replete and monitor
# DVT prophylaxis- Lovenox subcu
# CODE STATUS- patient is DNR
PT eval Home on discharge
Called daughter to update no response left voicemail.
More than 30 minutes spent in discharge including
Final examination of the patient
Summarizing hospital stay
Instructions for continuing care to all relevant caregivers
Preparation of discharge records, prescriptions, and referral forms
Total time spent (in minutes): 52
Anticipated Discharge: Today
Subjective/Interval History
-
Date of Service: December 05, 2024
Patient is having bowel movements. Voiding after German catheter removal
Objective Data
-
Labs:
Laboratory Results
12/05/24
04:10
WBC 5.6
Hgb 11.8 L
Hct 34.7 L
Plt Count 174
Sodium 129 L
Potassium 3.6
Chloride 105
Carbon Dioxide 23
BUN 9
Creatinine 0.5 L
Glucose 135 H
Calcium 7.8 L
Vital Signs:
Vital Signs
Temp Pulse Resp BP Pulse Ox
98.1 F 73 16 135/65 95
12/05/24 07:17 12/05/24 07:17 12/05/24 07:17 12/05/24 09:04 12/05/24 07:17
I&O
12/04/24 12/05/24 12/06/24
06:59 06:59 06:59
Intake Total 1350 / 1350 840 / 840
Output Total 525 / 525 1250 / 1250
Balance 825 / 825 -410 / -410
--- NOTE | 2024-12-05 11:06 | W.DCSUMMARY ---
Discharge Summary
Discharge Data
Date of Admission: 11/30/24
Date of Discharge: 12/05/24
-
Pending Results: No
Hospital Course
89-year-old female past medical history of hyperlipidemia, hypertension, melanoma s/p resection, pancreatic cancer status post surgery, chronic hyponatremia is presenting from home with persistent diarrhea. Patient blood cultures were negative.
Patient stool studies were negative. Patient was given dose of Imodium. Diarrhea suspecting due to Keytruda versus viral gastroenteritis. Patient diet slowly improved. IV fluid was discontinued. Patient with urinary hesitancy and urgency.
Underwent CT abdomen pelvis which showed emphysematous cystitis. German catheter was placed. Urine sample was sent to lab. Patient was started on broad-spectrum antibiotics. Patient was eval by urology. Patient urine culture with Klebsiella
with sensitivity to cephalosporins. Zosyn was discontinued and transition to p.o. Keflex. Patient German catheter was removed and she was voiding without difficulty. Patient was also eval by urology. Per urology patient can be discharged.
Patient was ambulating without difficulty. Patient daughter was updated. Patient be discharged home.
Discharge Plan
-
Patient Disposition: Home with Home Care
Discharge Diagnosis/Procedures: Emphysematous cystitis secondary to Klebsiella urinary tract infection
Hypokalemia
Diarrhea
German catheter placement status post removal
Condition: Fair
Diet: Regular
Activity: As tolerated
Driving Restrictions: As prior to admission
Blood Work: BMP in 1 week via primary doctor
Other Services: VN
Referrals:
Mario Victor MD [Active, Urology] - in one to two weeks
Adam Garcia CRNP [Family Provider] - in less than 1 week
Prescriptions:
New
cephalexin 500 mg capsule
500 mg PO Q6H 7 Days Qty: 28 0RF
Continued
levothyroxine 25 MCG tablet
25 mcg PO DAILY
lovastatin 40 mg Tablet
40 mg PO HS
loperamide 2 mg Capsule
2 mg PO DAILYPRN PRN (Reason: diarrhea)
metoprolol succinate 100 mg Tablet Extended Release 24 Hr
100 mg PO DAILY
acetaminophen [Tylenol Extra Strength] 500 mg Tablet
1,000 mg PO BIDPRN PRN (Reason: mild pain)
esomeprazole magnesium [Nexium] 40 mg Capsule,Delayed Release(Dr/Ec)
40 mg PO DAILY PRN (Reason: gerd)
valsartan 320 mg Tablet
320 mg PO DAILY
hydralazine 50 mg Tablet
50 mg PO TID
Creon 36,000-114,000- 180,000 unit Capsule,Delayed Release(Dr/Ec)
2 cap PO MEALS
Creon 36,000-114,000- 180,000 unit Capsule,Delayed Release(Dr/Ec)
1 cap PO HSPRN PRN (Reason: w/ snacks)
Discharge Orders:
Discharge Patient (As Directed); Ordered 12/05/24
Ordered By: Heron Brown
Discharge Date and Time
Discharge Date/Time: 12/05/24 13:41
Print Language: TELUGU
[2024-12-05] MEDS: MAALOX 30 ML PO (11:49)
--- NOTE | 2024-12-05 12:27 | W.PN.URO.CBU ---
Today's Communication / Plan
-
per hospitalist
Assessment / Plan
-
emphysematous cystitis rsponding clinically yto broad spectrum abs. GNB now onpo acbs home
Diagnosis
-
Date of Service: December 05, 2024
-
Patient Diagnosis:
Post Op Day:
Patient Diagnosis:
Post Op Day:
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
Post Op Day:
Subjective
-
feels better
Objective
-
Vital Signs
Temp Pulse Resp BP Pulse Ox
98.1 F 73 16 135/65 95
12/05/24 07:17 12/05/24 07:17 12/05/24 07:17 12/05/24 09:04 12/05/24 07:17
Intake and Output
12/04/24 12/05/24 12/06/24
06:59 06:59 06:59
Intake Total 1350 / 1350 840 / 840
Output Total 525 / 525 1250 / 1250
Balance 825 / 825 -410 / -410
Intake:
Oral fluids 650 / 650 840 / 840
IV fluids (Total) 600 / 600
IV piggybacks 100 / 100
Output:
Urine, German 525 / 525 900 / 900
Urine, Voided 350 / 350
Other:
How many times incontinent 1
SMALL amount urine
How many times incontinent 1
MODERATE amount urine
Number of unmeasured liquid
stools
Rectum 1 1
Laboratory Results
12/05/24 04:10
12/05/24 04:10
Review of Systems
-
: No Symptoms
Physical Exam
-
General - well developed, well nourished, no acute distress
Chest - clear bilaterally
Abdomen - soft, non-tender, positive bowel sounds, no CVAT, no incisional pain or distention
Genitalia - normal
Rectal - normal
Skin - warm & dry with no rash
Neuro - AOx3, no motor deficits
Extremities - no clubbing, no cyanosis, no edema
Incision - clean, dry
Dressing - clean, dry, intact
Care Review
Data Reviewed
Discussed with: Nursing and Family
--- NOTE | 2024-12-05 13:06 | CM ---
Reviewed the chart notes and spoke with the patient and son at the bedside. IMM reviewed. Patient's daughter to provided transportation home today. CM continues to be available to patient/family and is monitoring medical plan for needs at
discharge.
Plan: Discharge to home today with [facility] services.
[2024-12-05 13:11] VITALS: BP 129/59
[2024-12-05] MEDS: NON-FORMULARY ITEM PO (13:13)
[2024-12-05] MEDS: ZOSYN IV (13:13)
== END 2024-12-05 13:41 | disposition home health service (06) | DRG 394 ==
LOC: 2 NORTH 11:57
PROVIDERS: Emergency Medicine; Registered Nurse; ADMITTING PHYSICIAN Hospitalist; ATTENDING PHYSICIAN Hospitalist; CONSULT PHYSICIAN Specialist; EMERGENCY PHYSICIAN Student in an Organized Health Care Education/Training Program
DX: K52.1 Toxic gastroenteritis and colitis (principal); C25.9 Malignant neoplasm of pancreas, unspecified; D84.9 Immunodeficiency, unspecified; E87.1 Hypo-osmolality and hyponatremia; K56.7 Ileus, unspecified; N39.0 Urinary tract infection, site not specified; E86.1 Hypovolemia; E87.6 Hypokalemia; C43.9 Malignant melanoma of skin, unspecified; I10 Essential (primary) hypertension; Z66 Do not resuscitate; L89.301 Pressure ulcer of unspecified buttock, stage 1
CPT/HCPCS: 74019; 74177; 80048; 80053; 81003; 81015; 83735; 85025; 85027; 87045; 87046; 87077; 87086; 87186; 87324; 87427; 87449; 87798; 89055; 93005; 96360; 97116; 97162; 97166; 97530; 99285; Q9967

== ENCOUNTER 2024-12-08 20:20 | Inpatient (IN) | payer OTHER, SELFPAY ==
[2024-12-08] VITALS (8 sets, daily range): BP systolic 113–149; BP diastolic 54–113; BMI 21.7
[2024-12-08 13:42] LABS: Hematocrit 39.5 % (37.0-47.0); Hemoglobin 13.3 g/dL (12.0-16.0); Mean Corp Hgb Conc. 33.7 g/dL (33.0-37.0); Mean Corpuscular Volume 83.7 fL (81.0-99.0); Nucleated Red Blood Cells % 0 %; Platelet Count 213 10^3/uL (130-400); Red Cell Dist. Width 14.9 % (11.5-14.5)
[2024-12-08 14:04] LABS: ALT (SGPT) 14 U/L (0-35); AST (SGOT) 25 U/L (14-36); Albumin 2.8 g/dl (3.5-5.0); Alkaline Phosphatase 71 U/L (38-126); Blood Urea Nitrogen 9 mg/dl (7-17); Calcium 8.0 mg/dl (8.4-10.2); Carbon Dioxide 23 mmol/L (22-30); Chloride 98 mmol/L (98-107); Glucose 155 mg/dl (70-99); Potassium 3.6 mmol/L (3.5-5.1); Sodium 127 mmol/L (135-145); Total Protein 5.4 g/dl (6.3-8.2); eGFR > 60.00
--- NOTE | 2024-12-08 16:39 | ED.GENMED ---
History of Present Illness
General
Chief Complaint: Swelling
Source: patient
Time Seen by Provider: 12/08/24 16:24
History of Present Illness
History of Present Illness:
89-year-old female presents to the emergency room for evaluation of generalized weakness, abdominal distention, leg edema. Patient had been recently admitted to this hospital for diarrhea, weakness. Diarrhea improved with Imodium. She was also
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 She was initially treated with broad-spectrum antibiotics and discharged on antibiotics on Friday. Patient states she is feeling less energy now than when she was discharged. The edema has gotten worse.
Patient has pancreatic cancer which is now metastatic for which she is taking Keytruda. She had her first dose about 3 weeks ago.
Past History
Past History
ED Past Medical History: HTN and Hypercholesterolemia
ED Past Surgical History: Negative Cardiac
Social History
Tobacco: Non-smoker
Alcohol: None
Drug: None
Personal:
Living: with family
Employment: Employed
Phy Exam
Physical Exam
Physical Exam:
General: Awake, Alert, Oriented X3. No acute distress, appears chronically ill
Vitals: unremarkable
Head: Atraumatic
Eyes: Pupils equal, EOMI
Throat: Airway intact, no exudates
Neck: Trachea midline
Lungs: Clear and equal b/l
Heart: Regular rate, no murmurs
Abd: Soft, abdominal distention, nontender, No pulsatile mass
Neuro: Nonfocal
Skin: Warm, dry, no rash
Extremities: pulses equal b/l, 2+ edema
Scores
Heart Failure Risk
Heart Failure Risk Score: Not Applicable
Course
Orders/Labs/Results
Orders:
Orders
12/08/24 Lunch
Sodium, 2 Gram
12/08/24 13:29
Complete Blood Count/With Diff Urgent
Comprehensive Metabolic Panel Urgent
Lactic Acid Urgent
NT-proBNP Urgent
Comment: ADD ON
12/08/24 16:38
US Abdomen Limited Urgent
Comment:
Reason For Exam: abd distension, eval for degree of ascities
12/08/24 19:00
Add On- LAB Urgent
Tests Added?: NT-ProBNP
12/08/24 19:02
Blood Culture Q30M
FANTA Source: Blood/Venous
Specimen Description:
Blood Culture Q30M
FANTA Source: Blood/Venous
Specimen Description:
12/08/24 19:12
Furosemide [Lasix] 40 mg IV NOW STA
12/08/24 19:13
US Legs, Bilateral [US Periph Venous LOWER Ext Jun] Urgent
Comment:
Reason For Exam: swelling
12/08/24 19:22
Echo 2D MMode Color/Doppler Routine
Reason for Study: LE swelling
Code Status As Directed
Resuscitation Status: Do not resuscitate
Reached after discussion with pt or family/Healthcare POA: Yes
IRAD CONSULT Routine
Consulting Provider: Donell Prince
Was physician already notified: Yes
Procedure being ordered, including laterality if applicable: paracentesis
Acknowledgement that appropriate orders are entered: Yes
Body Fluid Albumin Routine
Fluid Source: Peritoneal (Ascites)
Body Fluid Cell Count Routine
What is the Body Fluid: peritoneal fluid
Comment: post procedure
Body Fluid Protein Routine
Fluid Source: Peritoneal (Ascites)
Fluid Culture with Gram Stain Routine
FANTA Source: Peritoneal Fluid
Specimen Description:
Comment: Post Procedure
Acetaminophen [Tylenol] 650 mg PO Q4HPRN PRN
Bisacodyl [Dulcolax] 10 mg RECTAL [id number] PRN
Docusate W/Senna [Senokot-S] 1 tablet PO BIDPRN PRN
Ondansetron Injectable [Zofran] 4 mg IV Q8HPRN PRN
Polyethylene Glycol Powder [Miralax] 17 grams PO DAILYPRN PRN
IRAD Cytology Routine
Source: Peritoneal Fluid
Clinical Impression: malignant
12/08/24 19:23
Activity As Directed
Activity Level: Out of Bed-Early Mobility
DNR Bracelet Application ONCE
Vital Signs As Directed
Frequency: Per unit guidelines
DX Deep Vein Thrombosis Video Routine
12/08/24 19:25
Admit/Transfer Patient As Directed
Co-Sign Provider:
Level of Care: Inpatient admission
Assign to:: Telemetry
Physician / Group: hospitalist
Diagnosis: swelling
Reason for Telemetry: Subacute Heart Failure
Date to Stop Telemetry: 12/10/24
Time to Stop Telemetry: 11:00
Reason for Hospitalization: swelling
Expected length of stay greater than two midnights?: Yes
ELOS- Estimated Length of Stay in days: 2
I certify the patient meets the requirements for IP care: Yes
PRN Pain Medication Management As Directed
May give lesser potent ordered pain med per pt: Yes
preference::
Protocol:: Medication orders for pain may be administered in a
manner that supports deferring to patient preference
when the pt is:
- Requesting an ordered lesser potent pain medication.
Least to most potent pain medications are defined
as: acetaminophen < NSAID < tramadol < opioids
(morphine, oxycodone, hydromorphone).
- Requesting a lesser dose of the same medication IF
ORDERED.
- Requesting a less intrusive route of administration
if both routes are prescribed by the provider (PO <
IV).
12/08/24 19:39
Urinalysis Reflex To Culture Urgent
Date Specimen was Collected: 12/08/24
Time Specimen was Collected: 19:04
Urine Microscopic Reflex Cult Urgent
Urine Culture Urgent
FANTA Source: U
Specimen Description:
Date Specimen was Collected: 12/08/24
Time Specimen was Collected: 19:04
12/09/24 00:00
Heparin 5,000 units SC Q8
12/09/24 06:00
Complete Blood Count/With Diff IN AM
Comprehensive Metabolic Panel IN AM
Magnesium IN AM
TSH IN AM
12/10/24 11:00
DC Protocol for Telemetry ONCE
Abnormal Lab Results
12/08/24 12/08/24
13:29 19:39
RDW 14.9 H %
(11.5-14.5)
Abs Immat Gran (auto) 0.1 H 10^3/uL
(0-0.05)
Absolute Lymphs (auto) 1.1 L 10^3/uL
(1.2-3.4)
Absolute Monos (auto) 0.7 H 10^3/uL
(0.1-0.6)
Immature Gran % 0.6 H %
(0-0.5)
Neutrophils % 76.5 H %
(42.2-75.2)
Lymphocytes % 13.6 L %
(20.5-51.1)
Sodium 127 L mmol/L
(135-145)
Creatinine 0.5 L mg/dL
(0.6-1.0)
Glucose 155 H mg/dl
(70-99)
Calcium 8.0 L mg/dl
(8.4-10.2)
Total Protein 5.4 L g/dl
(6.3-8.2)
Albumin 2.8 L g/dl
(3.5-5.0)
Leukocyte Esterase Rfl 3+ A
(Negative)
Urine Bacteria (Reflex) Moderate A
(Negative)
Urine Yeast Few A
(Negative)
Urine Albumin (Reflex) 1+ A
(Neg - Trace)
12/08/24 13:29
12/08/24 13:29
Vital Signs
Initial and Last Documented VS:
Initial Vital Signs
Temp Pulse Resp BP Pulse Ox
98.1 F 69 20 113/54 96
12/08/24 13:18 12/08/24 13:18 12/08/24 13:18 12/08/24 13:18 12/08/24 13:18
Last Documented Vital Signs
Temp Pulse Resp BP Pulse Ox
98.1 F 76 19 140/74 90
12/08/24 13:18 12/08/24 19:30 12/08/24 19:30 12/08/24 19:29 12/08/24 18:45
MDM/Problems Addressed
Differential Diagnosis Includes:
Progressive ascites, electrolyte abnormality, medication effect, progression of disease
MDM/Problems Addressed:
Presents with distention, weakness, malaise. Patient's labs are essentially unchanged from recent hospitalization. It is noted that she has hypoalbuminemia and hypoproteinemia. CT on her recent hospitalization showed a 'small' amount of ascites.
Unclear to me why she would have ascites as her metastatic melanoma is in her chest. She did recently start Keytruda. I believe the patient's overall presentation is a combination of side effect from Keytruda, perhaps progression of metastatic
disease and third spacing from malnutrition. It certainly possible that she has abdominal spread of her melanoma causing her ascites. I think she would benefit from hospitalization to have a paracentesis performed both diagnostically and
therapeutically. Also further evaluation to see if there is any further supportive measures to help her feel better.
*Radiology
Radiology exam reviewed: radiology read reviewed
*Pulse Oximetry
SaO2: 96
Oxygen Mode of Delivery: Room air
Patient hypoxic: no
*Critical Care Note
Total Time (30-74mins, 75-104mins- exclusive of procedures): Not Applicable
ED Attending Note
-
Portions of this chart may have been created with voice recognition software.� Occasional wrong word or��sound alike� substitutions may have occurred due to the inherent limitations of voice recognition software.
Discharge Plan
Departure
Patient Disposition: Admit
Date of Disposition: 12/08/24
Time of Disposition: 18:38
Presentation/result/management discussed w/ accepting MD/DO: Hospitalist
Condition: Fair
Discharge Problem:
Abdominal ascites, Malaise and fatigue
Interventions
Interventions:
*Risk Screen - Suicide Last Done: 12/08/24 13:18
*General Assessment Last Done: 12/08/24 16:46
*Neglect/Abuse Screening Last Done: 12/08/24 13:18
*ED- Fall Risk Assessment Last Done: 12/08/24 16:46
*ED COVID-19 Vaccine History Last Done: 12/08/24 16:46
ED- Cardiac Assessment Last Done: 12/08/24 16:46
ED- Pulmonary Assessment Last Done: 12/08/24 16:46
ED-Skin Assessment Last Done: 12/08/24 16:46
--- NOTE | 2024-12-08 19:27 | HPS.HSE ---
Family Physician
-
Family Physician: YSABEL De La Cruz
Chief Complaint
-
swelling
History of Present Illness
89yo F with PMH panceartic adenocarcinoma s/p Whipplemetastatic melanoma on Keytruda, hypothyroidism, HTN, HLD, GERD, admission for keytruda-induced diarrhea and emphysematous cystitis discharged on 6 days Keflex on 12/05/24 from came from home
with progressive weakness, abdominal distension and LE edema. No Hx of CHF and no crackles in ther lungs on exam. EKG with L axis deviation. Abd US concerning small volume ascitis.
Medical History
Past Medical History
Past Medical History: Reports Other
Additional Past Medical History:
see HPI
Past Surgical History: Reports Other
Additional Past Surgical History:
See HPI
Social History
Tobacco: Non-smoker
Alcohol: None
Drug: None
Family History
Family History: Not pertinent
Allergies / Home Medications
Allergies reflects when Allergies were last updated in [facility].
Home Medications with original date entered in [facility]
Allergy/Medication List:
Allergies
Allergy/AdvReac Type Severity Reaction Status Date / Time
amlodipine Allergy Unknown Verified 12/08/24 13:18
Home Medications
levothyroxine 25 mcg tablet 25 mcg PO DAILY Thyroid 09/17/21
lovastatin 40 mg tablet 40 mg PO HS High Cholesterol 11/15/22
acetaminophen 500 mg tablet (Tylenol Extra Strength) 1,000 mg PO BIDPRN PRN mild pain 11/29/24
esomeprazole magnesium 40 mg capsule,delayed release (Nexium) 40 mg PO DAILYPRN PRN gerd 11/29/24
hydralazine 50 mg tablet 50 mg PO TID 11/29/24
rqfuth-dbdskehs-wdwzzjn 36,000-114,000-180,000 unit capsule,delay rel (Creon) 2 cap PO MEALS 11/29/24
loperamide 2 mg capsule 2 mg PO DAILYPRN PRN diarrhea 11/29/24
metoprolol succinate 100 mg tablet,extended release 24 hr 100 mg PO DAILY Heart Disease/Condition 11/29/24
valsartan 320 mg tablet 320 mg PO DAILY Blood Pressure 11/29/24
cephalexin 500 mg capsule 500 mg PO Q6H 7 days #28 caps 12/05/24
ondansetron HCl 8 mg tablet 8 mg PO Q8HPRN PRN nausea/vomiting 12/08/24
Review of Systems
-
History Source: Patient
A 12 point ROS was completed and negative except as noted: Yes
Constitutional: Reports See HPI
Physical Exam
Vital Signs
Vital Signs
Temp Pulse Resp BP Pulse Ox
98.1 F 65 17 126/64 91
12/08/24 13:18 12/08/24 18:30 12/08/24 18:30 12/08/24 18:00 12/08/24 18:30
Physical Exam
General: No Apparent Distress, Comfortable and Conversant
HEENT: NormoCephalic, Anicteric and Moist mucous membranes
Respiratory: Clear; No Wheezes or Crackles
Cardiac: S1/S2 and Regular Rhythm; No Tachycardia
GI: Soft, Non Tender and Distended
Genito-urinary: No costovertebral tender
Musculoskeletal: No Clubbing, Edema, Left Lower Extremity and Edema, Right Lower Extremity
Skin: Warm
Neuro: Awake, Alert, Oriented and AO x 3
Psych: Calm
Laboratory Results
-
12/08/24 13:29
12/08/24 13:29
Laboratory Results
Lactic Acid 1.5 mmol/L (0.7-2.0) 12/08/24 13:29
Total Bilirubin 0.9 mg/dl (0.2-1.3) 12/08/24 13:29
AST 25 U/L (14-36) 12/08/24 13:29
ALT 14 U/L (0-35) 12/08/24 13:29
Alkaline Phosphatase 71 U/L (38-126) 12/08/24 13:29
Data Reviewed
-
Ultrasound: Report Reviewed by me
Lab Data: Labs Reviewed by me
Impression/Plan
-
A/P:
#LE swelling b/l
#b/l pleural effusions
#Ascites
US LE to r/o DVT
Lasix one dose in ED and then as needed bbased on further studies
check Nt-probnp, Echo
IRAD for possible paracentesis, however small amount of fluid on US
#right lower pole renal cyst
appears to communicate with the adjacent pancreaticojejunostomy in the right upper quadrant with some accompanying dilatation and inflammation seen on 12/02/24
Follow uip with imaging as needed
#melanoma on Keytruda
#Small nodule in the right anterior chest wall
Cont outpatient Onc
recently started with first injection
#Chronic hyponatremia
follow BMP
#GERD
#Essential HTN
#Hypothyroidism
#HLD
#emphysematous cystitis
#Pancreatic insufficiency s/p Whipple
cont home meds
check TSH
Hydralazine decreased to avoid hypotension on diuresis
#Malaise
2/2 recent admission, UTI, CA
PT/OT
DVT ppx hep
DNR/DNI - discussed with pt and daughter
I have spent at least 78min admitting the patient
[2024-12-08] MEDS: LASIX 40 MG IV (19:29)
[2024-12-08 19:51] LABS: Urine Character Clear (Clear)
[2024-12-08 20:11] LABS: Urine Squamous Cell >30 /LPF (Few)
[2024-12-08 20:12] LABS: Urine Red Blood Cell 0-2 /HPF (0-2)
[2024-12-08] MEDS: APRESOLINE 25 MG PO (22:32)
[2024-12-08] MEDS: LIPITOR 10 MG PO (22:33)
[2024-12-08] MEDS: KEFLEX 500 MG PO (22:33)
[2024-12-08] MEDS: HEPARIN 5000 UNITS SC (23:32)
[2024-12-09] VITALS (9 sets, daily range): BP systolic 65–161; BP diastolic 55–76; PULSE 73; BMI 23.7
--- NOTE | 2024-12-09 01:01 | PTCARENOTE ---
Pt arrived to unit via stretcher. Pt transferred from stretcher to bed. Pt oriented to room. Pt AAOx3, VSS. Plan of care ongoing, call chandler within reach.
[2024-12-09] MEDS: KEFLEX 500 MG PO ×4 (04:02→22:21)
[2024-12-09] MEDS: SYNTHROID 25 MCG PO (05:57)
[2024-12-09 07:34] LABS: ALT (SGPT) 13 U/L (0-35); AST (SGOT) 28 U/L (14-36); Albumin 2.5 g/dl (3.5-5.0); Alkaline Phosphatase 67 U/L (38-126); Blood Urea Nitrogen 9 mg/dl (7-17); Calcium 7.7 mg/dl (8.4-10.2); Carbon Dioxide 27 mmol/L (22-30); Chloride 98 mmol/L (98-107); Estimated Creatinine Clearance 47 ml/min; Glucose 104 mg/dl (70-99); Magnesium 1.5 mg/dl (1.6-2.3); Potassium 3.5 mmol/L (3.5-5.1); Sodium 129 mmol/L (135-145); Total Protein 5.0 g/dl (6.3-8.2); eGFR > 60.00
[2024-12-09 08:00] LABS: Hematocrit 36.0 % (37.0-47.0); Hemoglobin 12.0 g/dL (12.0-16.0); Mean Corp Hgb Conc. 33.3 g/dL (33.0-37.0); Mean Corpuscular Volume 83.5 fL (81.0-99.0); Nucleated Red Blood Cells % 0 %; Platelet Count 155 10^3/uL (130-400); Red Cell Dist. Width 14.7 % (11.5-14.5)
[2024-12-09 08:04] LABS: TSH 3.48 uIU/ml (0.47-4.68)
--- NOTE | 2024-12-09 08:58 | VNURNOTE ---
Chart reviewed. Patient is current with VN. Will continue to follow hospital course and DC plans.
[2024-12-09] MEDS: HEPARIN 5000 UNITS SC ×3 (10:18→23:23)
[2024-12-09] MEDS: DIOVAN 320 MG PO (10:18)
[2024-12-09] MEDS: APRESOLINE 25 MG PO ×3 (10:18→22:22)
[2024-12-09] MEDS: TOPROL XL 100 MG PO (10:18)
[2024-12-09] MEDS: MAGNESIUM SULFATE 100 IV (10:27)
--- NOTE | 2024-12-09 11:09 | W.PN.HOSP.TC ---
Today's Communication/Plan
-
further Lasix pending chest ultrasound and echo
PT eval
Continue p.o. antibiotic
Monitor blood pressure
Assessment / Plan
Assessment / Plan
General: No Apparent Distress, Comfortable and Conversant
HEENT: NormoCephalic, Anicteric and Moist mucous membranes
Respiratory: Clear; No Wheezes or Crackles
Cardiac: S1/S2 and Regular Rhythm; No Tachycardia
GI: Soft, Non Tender and Distended
Genito-urinary: No costovertebral tender
Musculoskeletal: No Clubbing, Edema, Left Lower Extremity and Edema, Right Lower Extremity trace
Skin: Warm
Neuro: Awake, Alert, Oriented and AO x 3
Psych: Calm
#LE swelling b/l trace
#b/l pleural effusions
Lower extremity ultrasound negative for DVT
proBNP of 970. Echo pending.
IRAD with not enough fluid for paracentesis
Chest US pending
Did receive fluid in the recent hospitalization
Suspected mild iatrogenic trace anasarca in the setting of hypoalbuminemia
#right lower pole renal cyst
appears to communicate with the adjacent pancreaticojejunostomy in the right upper quadrant with some accompanying dilatation and inflammation seen on 12/02/24
Follow uip with imaging as needed
#melanoma on Keytruda
#Small nodule in the right anterior chest wall
Cont outpatient Onc
recently started with first injection
#Chronic hyponatremia
follow BMP
#Hypomagnesemia
Replete and monitor
#emphysematous cystitis with Klebsiella
Continue with p.o. Keflex
#GERD
#Essential HTN continue with home blood pressure regimen. If no further diuresis needed then can increase hydralazine to home dose
#Hypothyroidism�TSH normal
#HLD
#Pancreatic insufficiency s/p Whipple
Continue with Creon
#Malaise
2/2 recent admission, UTI, CA
PT/OT
DVT ppx hep
DNR/DNI
PT eval Home health
Anticipated Discharge: 24 - 48 hours
Subjective/Interval History
-
Date of Service: December 09, 2024
States her abdomen is starting to feel better
States of weakness
Objective Data
-
Labs:
Laboratory Results
12/09/24
06:33
WBC 6.2
Hgb 12.0
Hct 36.0 L
Plt Count 155 D
Sodium 129 L
Potassium 3.5
Chloride 98
Carbon Dioxide 27
BUN 9
Creatinine 0.4 L
Glucose 104 H
Calcium 7.7 L
Total Bilirubin 0.9
AST 28
ALT 13
Alkaline Phosphatase 67
Vital Signs:
Vital Signs
Temp Pulse Resp BP Pulse Ox
97.6 F 65 16 158/65 92
12/09/24 08:12 12/09/24 08:12 12/09/24 08:12 12/09/24 08:12 12/09/24 08:12
I&O
12/08/24 12/09/24 12/10/24
06:59 06:59 06:59
Output Total 1400 / 1400
Balance -1400 / -1400
Data Reviewed
-
Total Time Spent with Patient (in minutes): 55
[2024-12-09] MEDS: ZENPEP DELAYED RELEASE CAPSULE 2 CAPSULE PO (16:16)
[2024-12-09] MEDS: LASIX 20 MG IV (16:17)
--- NOTE | 2024-12-09 16:46 | CM ---
Addendum entered by Mirian Ventura 12/09/24 17:16:
correction: current with [facility]
Original Note:
Patient seen at bedside
IA completed
Lives with spouse in 2 story home, 1 step to enter, flight to bed/bath
PLOF: Independent with cane at times
DME: Hospital bed, cane, walker
Daughters assist & are supportive
Has had [facility] in past, denies Rehab
Denies insecurities
PT rec home health - options reviewed prefers [facility]
REFERRAL entered in [facility]
PCP: Adam Garcia
Pharmacy: [facility]
Plan: Home with [facility]
[2024-12-09] MEDS: LIPITOR 10 MG PO (22:21)
[2024-12-10 03:14] VITALS: BP 130/60
[2024-12-10] MEDS: KEFLEX 500 MG PO ×4 (04:42→21:43)
[2024-12-10] MEDS: SYNTHROID 25 MCG PO (05:48)
[2024-12-10 06:47] VITALS: BMI 24.1
[2024-12-10 07:30] VITALS: BP 157/68
[2024-12-10] MEDS: ZENPEP DELAYED RELEASE CAPSULE 2 CAPSULE PO ×2 (08:30→13:13)
[2024-12-10] MEDS: DIOVAN 320 MG PO (08:30)
[2024-12-10] MEDS: HEPARIN 5000 UNITS SC ×3 (08:30→23:14)
[2024-12-10] MEDS: TOPROL XL 100 MG PO (08:33)
[2024-12-10] MEDS: APRESOLINE 25 MG PO ×3 (08:34→21:44)
[2024-12-10 09:08] LABS: Blood Urea Nitrogen 11 mg/dl (7-17); Calcium 7.4 mg/dl (8.4-10.2); Carbon Dioxide 28 mmol/L (22-30); Chloride 99 mmol/L (98-107); Estimated Creatinine Clearance 47 ml/min; Glucose 133 mg/dl (70-99); Potassium 3.4 mmol/L (3.5-5.1); Sodium 126 mmol/L (135-145); eGFR > 60.00
--- NOTE | 2024-12-10 10:31 | W.PN.HOSP.TC ---
Today's Communication/Plan
-
Nephro input
Check mag
Replete potassium
Check urine lites
Assessment / Plan
Assessment / Plan
General: No Apparent Distress, Comfortable and Conversant
HEENT: NormoCephalic, Anicteric and Moist mucous membranes
Respiratory: Clear; No Wheezes or Crackles
Cardiac: S1/S2 and Regular Rhythm; No Tachycardia
GI: Soft, Non Tender and Distended
Genito-urinary: No costovertebral tender
Musculoskeletal: No Clubbing, Edema, Left Lower Extremity and Edema, Right Lower Extremity trace
Skin: Warm
Neuro: Awake, Alert, Oriented and AO x 3
Psych: Calm
#LE swelling b/l trace
#b/l pleural effusions trace per radiology
Lower extremity ultrasound negative for DVT
proBNP of 970. Echo with a EF of 65 to 70%. No wall motion abnormality. Moderate tricuspid regurgitation. PASP mildly elevated. No prior comparison data.
IRAD with not enough fluid for paracentesis
Did receive fluid in the recent hospitalization
Suspected mild iatrogenic trace anasarca in the setting of hypoalbuminemia
#right lower pole renal cyst
appears to communicate with the adjacent pancreaticojejunostomy in the right upper quadrant with some accompanying dilatation and inflammation seen on 12/02/24
Follow uip with imaging as needed and follow-up with oncology and primary surgeon who performed Whipple
#melanoma on Keytruda
#Small nodule in the right anterior chest wall
Cont outpatient Onc
recently started with first injection
# Acute on chronic hyponatremia
follow BMP
Will ask nephrology for input
Check serum osmolality and urine lites
Hold diuretics today
#Hypomagnesemia
Replete and monitor
#emphysematous cystitis with Klebsiella
Continue with p.o. Keflex
#GERD
#Essential HTN continue with home blood pressure regimen. If no further diuresis needed then can increase hydralazine to home dose
#Hypothyroidism�TSH normal
#HLD
#Pancreatic insufficiency s/p Whipple
Continue with Creon
#Malaise
2/2 recent admission, UTI, CA
PT/OT
DVT ppx hep
DNR/DNI
PT eval Home health
Updated patient daughter over the phone in details
Anticipated Discharge: > 48 hours
Subjective/Interval History
-
Date of Service: December 10, 2024
States of left lower extremity edema
States slightly starting to feel better energy is coming back
Objective Data
-
Labs:
Laboratory Results
12/10/24
08:07
Sodium 126 L
Potassium 3.4 L
Chloride 99
Carbon Dioxide 28
BUN 11
Creatinine 0.4 L
Glucose 133 H
Calcium 7.4 L
Vital Signs:
Vital Signs
Temp Pulse Resp BP Pulse Ox
97.8 F 65 16 157/68 93
12/10/24 07:30 12/10/24 07:30 12/10/24 07:30 12/10/24 07:30 12/10/24 07:30
I&O
12/09/24 12/10/24 12/11/24
06:59 06:59 06:59
Intake Total 1040 / 1040
Output Total 1400 / 1400
Balance -1400 / -1400 1040 / 1040
Data Reviewed
-
Total Time Spent with Patient (in minutes): 55
[2024-12-10] MEDS: KCL 40 MEQ PO (11:10)
[2024-12-10 11:49] LABS: Magnesium 1.9 mg/dl (1.6-2.3)
[2024-12-10 12:00] VITALS: BP 130/47
--- NOTE | 2024-12-10 12:03 | CM ---
Patient chart reviewed
Nephrology consult
NA 126, K 3.4
Patient current with [facility]
referral in [facility]
PLAN: Home with [facility] stable
[2024-12-10] MEDS: ZENPEP DELAYED RELEASE CAPSULE PO (13:05)
--- NOTE | 2024-12-10 13:41 | W.CON.NEPH ---
Consultation
-
Date/Time Consultation Requested: 12/10/24 1029
Date/Time Consultation Performed: 12/10/24 1630
Requesting Provider: Heron Whitman
Performing Provider: Lori Joseph
Reason for Consultation: Hyponatremia
Medical History
-
Chief Complaint: Swelling
History of Present Illness:
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
and emphysematous cystitis discharged on 6 days Keflex on 12/05/24 from came from home with progressive weakness, abdominal distension and LE edema. No Hx of CHF, Abd US concerning small volume ascites. Echo has normal EF. He received low lasix on
12/09 sodium decreased from 129 to 126 hence nephrology consulted. Offers no cp or sob. still with abd distension. Has nausea. no voimting. decreased appetite but no change in weight per family. No dysuria.
Past Medical History
panceartic adenocarcinoma s/p Whipple, metastatic melanoma on Keytruda, hypothyroidism, HTN, HLD, GERD, keytruda-induced diarrhea
Past Surgical History: Other (ipple)
Social History
Tobacco: Non-Smoker
Alcohol: None
Drug: None
Family History
Family History: Not Pertinent
Allergies / Home Medications
Allergy/AdvReac Type Severity Reaction Status Date / Time
amlodipine Allergy Unknown Verified 12/08/24 13:18
�Medication �Instructions �Recorded �Confirmed �Type
levothyroxine 25 mcg tablet 25 mcg PO DAILY Thyroid 09/17/21 12/08/24 History
lovastatin 40 mg tablet 40 mg PO HS High Cholesterol 11/15/22 12/08/24 History
acetaminophen 500 mg tablet 1,000 mg PO BIDPRN PRN mild pain 11/29/24 12/08/24 History
(Tylenol Extra Strength)
esomeprazole magnesium 40 mg 40 mg PO DAILYPRN PRN gerd 11/29/24 12/08/24 History
capsule,delayed release (Nexium)
hydralazine 50 mg tablet 50 mg PO TID Blood Pressure 11/29/24 12/08/24 History
iqguex-nquflstf-ldwjijo 2 cap PO MEALS Gastrointestinal 11/29/24 12/08/24 History
36,000-114,000-180,000 unit Issue
capsule,delay rel (Creon)
loperamide 2 mg capsule 2 mg PO DAILYPRN PRN diarrhea 11/29/24 12/08/24 History
metoprolol succinate 100 mg 100 mg PO DAILY Heart 11/29/24 12/08/24 History
tablet,extended release 24 hr Disease/Condition
valsartan 320 mg tablet 320 mg PO DAILY Blood Pressure 11/29/24 12/08/24 History
cephalexin 500 mg capsule 500 mg PO Q6H 7 days #28 caps 12/05/24 12/08/24 Rx
ondansetron HCl 8 mg tablet 8 mg PO Q8HPRN PRN nausea/vomiting 12/08/24 12/08/24 History
Review of Systems
-
All other systems: Negative unless noted
Physical Exam
Vital Signs
Vital Signs
Temp Pulse Resp BP Pulse Ox
98.0 F 66 16 130/47 94
12/10/24 12:00 12/10/24 12:00 12/10/24 12:00 12/10/24 12:00 12/10/24 12:00
Lab Results
WBC 6.2 10^3/uL (4.8-10.8) 12/09/24 06:33
RBC 4.31 10^6/uL (4.20-5.40) 12/09/24 06:33
Hgb 12.0 g/dL (12.0-16.0) 12/09/24 06:33
Hct 36.0 % (37.0-47.0) L 12/09/24 06:33
Plt Count 155 10^3/uL (130-400) D 12/09/24 06:33
Sodium 126 mmol/L (135-145) L 12/10/24 08:07
Potassium 3.4 mmol/L (3.5-5.1) L 12/10/24 08:07
Chloride 99 mmol/L (98-107) 12/10/24 08:07
Carbon Dioxide 28 mmol/L (22-30) 12/10/24 08:07
BUN 11 mg/dl (7-17) 12/10/24 08:07
Creatinine 0.4 mg/dL (0.6-1.0) L 12/10/24 08:07
eGFR > 60.00 12/10/24 08:07
Glucose 133 mg/dl (70-99) H 12/10/24 08:07
Calcium 7.4 mg/dl (8.4-10.2) L 12/10/24 08:07
Phosphorus 3.2 mg/dl (2.5-4.5) 12/10/24 08:07
Ytf-R-Ibkinljngkl Pept 970 pg/ml 12/08/24 13:29
Albumin 2.5 g/dl (3.5-5.0) L 12/09/24 06:33
Physical Exam
General: Awake, Alert, Oriented, AOx3, No Distress and Nontoxic
HEENT: Anicteric, Conjunctivae Clear, Facial Symmetry and No JVD
Respiratory: Clear, Normal Excursion and Nonlabored Respirations
Cardiac: S1/S2 and Regular Rate/Rhythm
Breast: Deferred by me
Abdomen: Soft, Nontender and Other (distended)
Musculoskeletal: No Cyanosis and Edema (2+)
Skin: No Rash
Neuro: Nonfocal/Grossly Intact
Psych: Appropriate
Data Reviewed
-
Radiology: Report Reviewed by me, Discussed with Patient and Discussed with Family
Labs: Labs Reviewed by me, Discussed with Patient and Discussed with Family
Assessment/Plan
-
IMP:
LE swelling b/l trace
b/l pleural effusions trace
right lower pole renal cyst appears to communicate with the adjacent pancreaticojejunostomy-f/u with surg
melanoma on Keytruda
Small nodule in the right anterior chest wall
Acute on chronic hyponatremia
Hypomagnesemia
emphysematous cystitis with Klebsiella
GERD
Essential HTN
Hypothyroidism
HLD
Pancreatic insufficiency s/p Whipple
Malaise
Plan:
A/w edema, echo fine and no DVT
trace pleural effusion on CXR, BNP low 970
Albumin is low likely is the cause for third spacing
hyponatremia seem chronic, worse despite lasix
await U osmo and U na , samsca if U osmo high
TSH is normal and BP stable with out hypotension
replace k
maintain FR 48ounces/day
she may need lasix after sodium stabilizes
encourage solute intake
d/w pt and family at bedside in detail
[2024-12-10] MEDS: PROTONIX 40 MG PO (14:36)
[2024-12-10 16:00] VITALS: BP 145/71
--- NOTE | 2024-12-10 16:11 | PTCARENOTE ---
patient reports leg edema, feels less weak. administered PRN Protonix for c/o 'GI upset', see MAR. reports improved. one episode of diarrhea this am. sitting oob in chair, vss, will continue to monitor.
[2024-12-10] MEDS: NON-FORMULARY ITEM 2 UNIT PO (18:24)
[2024-12-10 19:09] VITALS: BP 127/62
[2024-12-10] MEDS: SAMSCA 7.5 MG PO (19:51)
[2024-12-10] MEDS: LIPITOR 10 MG PO (21:42)
[2024-12-10 23:37] VITALS: BP 129/54
[2024-12-11 03:05] VITALS: BP 130/58
[2024-12-11] MEDS: KEFLEX 500 MG PO ×2 (05:08→11:19)
[2024-12-11] MEDS: SYNTHROID 25 MCG PO (05:08)
[2024-12-11 06:28] VITALS: BMI 22.5
[2024-12-11 06:35] LABS: Blood Urea Nitrogen 8 mg/dl (7-17); Calcium 7.7 mg/dl (8.4-10.2); Carbon Dioxide 29 mmol/L (22-30); Chloride 103 mmol/L (98-107); Estimated Creatinine Clearance 47 ml/min; Glucose 132 mg/dl (70-99); Potassium 4.1 mmol/L (3.5-5.1); Sodium 131 mmol/L (135-145); eGFR > 60.00
[2024-12-11 07:51] VITALS: BP 143/64
--- NOTE | 2024-12-11 08:16 | W.PN.HOSP.TC ---
Today's Communication/Plan
-
dc if ok with nephrology
Assessment / Plan
Assessment / Plan
PE:
General: No Apparent Distress, Comfortable and Conversant
HEENT: NormoCephalic, Anicteric and Moist mucous membranes
Respiratory: Clear; No Wheezes or Crackles
Cardiac: S1/S2 and Regular Rhythm; No Tachycardia
GI: Soft, Non Tender and Distended
Genito-urinary: No costovertebral tender
Musculoskeletal: No Clubbing, Edema, chronic bruises note don legs/ wound/ excoriated skin, Left Lower Extremity and Edema, Right Lower Extremity trace
Skin: Warm
Neuro: Awake, Alert, Oriented and AO x 3
Psych: Calm
#LE swelling b/l trace due to low albumin
#b/l pleural effusions trace per radiology
Lower extremity ultrasound negative for DVT
proBNP of 970. Echo with a EF of 65 to 70%. No wall motion abnormality. Moderate tricuspid regurgitation. PASP mildly elevated. No prior comparison data.
IRAD with not enough fluid for paracentesis
Did receive fluid in the recent hospitalization
Suspected mild iatrogenic trace anasarca in the setting of hypoalbuminemia
#right lower pole renal cyst
appears to communicate with the adjacent pancreaticojejunostomy in the right upper quadrant with some accompanying dilatation and inflammation seen on 12/02/24
Follow up with imaging as needed and follow-up with oncology and primary surgeon who performed Whipple
#melanoma on Keytruda
#Small nodule in the right anterior chest wall
Cont outpatient Onc
recently started with first injection
# Acute on chronic hyponatremia
improved.
Appreciate nephrology input, encourage solute intake
# hypokalemia , resolved
#Hypomagnesemia
Replete and monitor
#emphysematous cystitis with Klebsiella
Repeat culture negative
negative blood cultures
Continue with p.o. Keflex
#GERD
#Essential HTN continue with home blood pressure regimen. If no further diuresis needed then can increase hydralazine to home dose
#Hypothyroidism�TSH normal
#HLD
#Pancreatic insufficiency s/p Whipple
Continue with Creon
#Malaise
2/2 recent admission, UTI, CA
PT/OT
DVT ppx hep
DNR/DNI
PT eval Home health
Total discharge time spent to see the patient, examine the patient, review data and lab result, discuss discharge plan with patient, nursing staff around 65 minutes
Anticipated Discharge: Today
Subjective/Interval History
-
Date of Service: December 11, 2024
No complaints
She wants to go home
Objective Data
-
Labs:
Laboratory Results
12/11/24
05:47
Sodium 131 L
Potassium 4.1
Chloride 103
Carbon Dioxide 29
BUN 8
Creatinine 0.4 L
Glucose 132 H
Calcium 7.7 L
Vital Signs:
Vital Signs
Temp Pulse Resp BP Pulse Ox
98.4 F 67 17 143/64 93
12/11/24 07:51 12/11/24 07:51 12/11/24 07:51 12/11/24 07:51 12/11/24 07:51
I&O
12/10/24 12/11/24 12/12/24
06:59 06:59 06:59
Intake Total 1040 / 1040 1080 / 1080
Balance 1040 / 1040 1080 / 1080
[2024-12-11] MEDS: NON-FORMULARY ITEM 2 UNIT PO ×2 (08:42→12:06)
[2024-12-11] MEDS: TOPROL XL 100 MG PO (08:42)
[2024-12-11] MEDS: APRESOLINE 25 MG PO (08:42)
[2024-12-11] MEDS: DIOVAN 320 MG PO (08:42)
[2024-12-11] MEDS: HEPARIN 5000 UNITS SC (08:43)
[2024-12-11 11:19] VITALS: BP 120/49
--- NOTE | 2024-12-11 12:00 | CM ---
Addendum entered by Allyson Ruano 12/11/24 13:09:
IMM given and signed by patient. Copy provided to patient/family.
Original Note:
Pt cleared for discharge to home today with [facility] resumption of care. Referral accepted in [facility].
Plan: Discharge to home with [facility]
--- NOTE | 2024-12-11 12:07 | W.DCSUMMARY ---
Discharge Summary
Discharge Data
Date of Admission: 12/08/24
Date of Discharge: 12/11/24
-
Pending Results: No
Hospital Course
89 years old female came from home with progressive weakness, abdominal distension and bilateral lower extremity edema. No history of congestive heart failure. Lung exam was normal. No hypoxia. EKG with L axis deviation. Abdominal US concerning
small volume ascites. Ultrasound of the lower extremity did not show deep venous thrombosis but shows severe subcutaneous edema. Patient was evaluated by interventional radiology for paracentesis but was canceled due to trace volume of ascites
which was not sufficient for percutaneous drain. Patient did not have leukocytosis. Blood work showed chronic hyponatremia and sodium went down to 126 from 129. Patient was evaluated by diamond sander. She was given 1 dose of tolvaptan and
furosemide. Sodium improved to 131 and creatinine 0.4 upon discharge. Patient felt better and asked for discharge. She was evaluated by physical therapy. Discharge planning was reviewed by caseworker. Patient remained hemodynamically stable.
She was discharge home in stable condition with home health services. Given script to do BMP in 2-3 days.
Discharge Plan
-
Patient Disposition: Home with Home Care
Discharge Diagnosis/Procedures: LE swelling b/l trace with low albumin
b/l pleural effusions, trace
right lower pole renal cyst appears to communicate with the adjacent pancreaticojejunostomy-f/u with surg
melanoma on Keytruda
Small nodule in the right anterior chest wall
Acute on chronic hyponatremia, improved.
Hypomagnesemia
emphysematous cystitis with Klebsiella
GERD
Essential HTN
Hypothyroidism
HLD
Pancreatic insufficiency s/p Whipple
Malaise
Diet: As tolerated, Regular and Restrict fluids to 64 oz
Blood Work: BMP in 2-3 days
Referrals:
Adam Garcia CRNP [Family Provider] - in one to two weeks
Lori Awad MD [Active, Nephrology] - in two to three weeks
Prescriptions:
New
furosemide [Lasix] 20 mg tablet
20 mg PO DAILY Qty: 30 0RF
Continued
levothyroxine 25 MCG tablet
25 mcg PO DAILY
lovastatin 40 mg Tablet
40 mg PO HS
loperamide 2 mg Capsule
2 mg PO DAILYPRN PRN (Reason: diarrhea)
metoprolol succinate 100 mg Tablet Extended Release 24 Hr
100 mg PO DAILY
acetaminophen [Tylenol Extra Strength] 500 mg Tablet
1,000 mg PO BIDPRN PRN (Reason: mild pain)
esomeprazole magnesium [Nexium] 40 mg Capsule,Delayed Release(Dr/Ec)
40 mg PO DAILYPRN PRN (Reason: gerd)
valsartan 320 mg Tablet
320 mg PO DAILY
hydralazine 50 mg Tablet
50 mg PO TID
Creon 36,000-114,000- 180,000 unit Capsule,Delayed Release(Dr/Ec)
2 cap PO MEALS
cephalexin 500 mg capsule
500 mg PO Q6H 7 Days Qty: 28 0RF
Patient Comments:
12/08/2024, filled on 12/05/2024 and instructed to take 1 capsule Q6H for 7 days.
ondansetron HCl 8 mg tablet
8 mg PO Q8HPRN PRN (Reason: nausea/vomiting)
Discharge Orders:
Discharge Patient (As Directed); Ordered 12/11/24
Ordered By: Robert Ambriz
Discharge Date and Time
Discharge Date/Time: 12/11/24 13:09
Print Language: PERUVIAN
[2024-12-11] MEDS: IMODIUM 2 MG PO (12:46)
--- NOTE | 2024-12-11 13:29 | W.PN.NEPH.PH ---
Today's Communication / Plan
-
see plan
Assessment/Plan
-
IMP:
LE swelling b/l trace
b/l pleural effusions trace
right lower pole renal cyst appears to communicate with the adjacent pancreaticojejunostomy-f/u with surg
melanoma on Keytruda
Small nodule in the right anterior chest wall
Acute on chronic hyponatremia
Hypomagnesemia
emphysematous cystitis with Klebsiella
GERD
Essential HTN
Hypothyroidism
HLD
Pancreatic insufficiency s/p Whipple
Malaise
Plan:
A/w edema, echo normal EF, mod TR and no DVT
trace pleural effusion on CXR, BNP low 970
Albumin is low likely is the cause for third spacing, U PCR neg
hyponatremia seem chronic, worse despite lasix
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
TSH is normal and BP stable with out hypotension
sodium better post samsca
maintain FR 48ounces/day
start lasix 20mg daily and labs on Friday
f/u with PCP
encourage solute intake
d/w pt and family at bedside in detail
d/w priamry
-
-
Date of Service: December 11, 2024
CC / HPI / ROS
-
Chief Complaint:
hyponatremia
History of Present Illness:
sodium better at 131 post samsca 12/10
BP stable, no fever
k normal
Review of Systems:
has some diarrhe, plan to have imodium
no abd pain or nausea
Labs
-
Labs:
WBC 6.2 10^3/uL (4.8-10.8) 12/09/24 06:33
RBC 4.31 10^6/uL (4.20-5.40) 12/09/24 06:33
Hgb 12.0 g/dL (12.0-16.0) 12/09/24 06:33
Hct 36.0 % (37.0-47.0) L 12/09/24 06:33
Plt Count 155 10^3/uL (130-400) D 12/09/24 06:33
Sodium 131 mmol/L (135-145) L 12/11/24 05:47
Potassium 4.1 mmol/L (3.5-5.1) 12/11/24 05:47
Chloride 103 mmol/L (98-107) 12/11/24 05:47
Carbon Dioxide 29 mmol/L (22-30) 12/11/24 05:47
BUN 8 mg/dl (7-17) 12/11/24 05:47
Creatinine 0.4 mg/dL (0.6-1.0) L 12/11/24 05:47
eGFR > 60.00 12/11/24 05:47
Glucose 132 mg/dl (70-99) H 12/11/24 05:47
Calcium 7.7 mg/dl (8.4-10.2) L 12/11/24 05:47
Phosphorus 3.2 mg/dl (2.5-4.5) 12/10/24 08:07
Qyn-O-Mjizpugvmmq Pept 970 pg/ml 12/08/24 13:29
Albumin 2.5 g/dl (3.5-5.0) L 12/09/24 06:33
Physical Exam
-
Vital Signs:
Vital Signs
Temp Pulse Resp BP Pulse Ox
98.5 F 66 17 120/49 95
12/11/24 11:19 12/11/24 11:19 12/11/24 11:19 12/11/24 11:19 12/11/24 11:19
Cardiovascular:: Regular rate and rhythm
Respiratory:: Bilateral: CTA
Lung Excursion:: Normal
Abdomen:: Distended, Nontender and Soft
Extremity Edema:: +1: Bilateral:
German Catheter: No
== END 2024-12-11 13:09 | disposition home health service (06) | DRG 844 ==
LOC: 3 WEST ACU 20:20
PROVIDERS: Hospitalist; Student in an Organized Health Care Education/Training Program; ADMITTING PHYSICIAN Internal Medicine; ATTENDING PHYSICIAN Internal Medicine; CONSULT PHYSICIAN Internal Medicine; EMERGENCY PHYSICIAN Emergency Medicine
DX: E88.09 Other disorders of plasma-protein metabolism, not elsewhere classified (principal); C25.9 Malignant neoplasm of pancreas, unspecified; R18.8 Other ascites; J90 Pleural effusion, not elsewhere classified; E22.2 Syndrome of inappropriate secretion of antidiuretic hormone; N30.80 Other cystitis without hematuria; E78.00 Pure hypercholesterolemia, unspecified; E83.42 Hypomagnesemia; B96.1 Klebsiella pneumoniae [K. pneumoniae] as the cause of diseases classified elsewhere; E03.9 Hypothyroidism, unspecified; K21.9 Gastro-esophageal reflux disease without esophagitis; C43.9 Malignant melanoma of skin, unspecified; N28.1 Cyst of kidney, acquired; E87.6 Hypokalemia; I10 Essential (primary) hypertension; R53.81 Other malaise; I07.1 Rheumatic tricuspid insufficiency; Z66 Do not resuscitate; Z92.26 Personal history of immune checkpoint inhibitor therapy; Z88.8 Allergy status to other drugs, medicaments and biological substances; Z79.890 Hormone replacement therapy; Z90.411 Acquired partial absence of pancreas; Z87.440 Personal history of urinary (tract) infections
CPT/HCPCS: 76705; 80048; 80053; 81003; 81015; 82570; 83605; 83735; 83880; 83930; 83935; 84100; 84156; 84300; 84443; 85025; 87040; 87086; 93306; 93970; 97162; 97166; 99285